=== PATIENT | male | born 1975 | race Caucasian/White ===

== ENCOUNTER 2022-06-15 20:19 | Inpatient (IN) | payer OTHER, SELFPAY ==
--- NOTE | ~2022-06-15 | CT_ITS ---
EXAMINATION: CT PELVIS WITH CONTRAST CLINICAL INFORMATION: Rule out perirectal abscess COMPARISON: None TECHNIQUE: Helical scanning was performed with submillimeter collimation through the pelvis with the use of oral contrast and during bolus intravenous injection of 85 mL of Omnipaque 350 intravenous contrast. Sagittal and coronal multiplanar 2-D reconstructions were obtained. This CT examination was performed using dose optimization techniques as appropriate, variously including the following: *Automated exposure control *Adjustment of mA and/or kV according to patient size (this includes techniques or standardized protocols for targeted exams where dose is matched to indication/reason for exam; i.e. extremities or head) *Use of iterative reconstruction technique DLP: 544 mGy-cm FINDINGS: PELVIS: No dilated bowel loops or bowel wall thickening in the [id number]. Trace free pelvic fluid and presacral edema. No perirectal or perianal fluid collection appreciated. No loculated collection/abscess. No pelvic or inguinal lymphadenopathy. Small fat-containing left inguinal hernia. Mild atherosclerotic vascular calcifications of the lower abdominal iliac arteries. Bladder grossly unremarkable. Normal sized prostate gland. Mild subcutaneous edema. Small bubbles of subcutaneous emphysema in the left lower quadrant, presumably injection sites. Correlate clinically. OSSEOUS STRUCTURES: No acute fracture. No suspicious appearing osseous lesion. Mild to moderate bilateral hip joint osteoarthritis with joint space narrowing, subchondral sclerosis, subchondral cysts, and osteophytes. Pubic symphysis and SI joints are congruent and intact. Partially sacralized the vertebra at the lumbosacral junction. Disc degenerative changes in the imaged lower lumbar spine. CT/CT pelvis w IV con IMPRESSION: 1. No perirectal/perianal fluid collection to suggest abscess. No appreciable rectal wall thickening. 2. Trace free pelvic fluid and presacral edema.
--- NOTE | ~2022-06-15 | CT_ITS ---
EXAMINATION: CT HEAD WITHOUT CONTRAST CT CERVICAL SPINE WITHOUT CONTRAST CLINICAL INFORMATION: Fall. Head strike. COMPARISON: None. TECHNIQUE: Imaging was performed from the skull base to vertex without intravenous administration of contrast. In addition, helical noncontrast CT imaging was acquired through the cervical spine and source images were reviewed along with axial reconstructions and sagittal and coronal MPRs. [This CT examination was performed using dose optimization techniques as appropriate, variously including the following: *Automated exposure control *Adjustment of mA and/or kV according to patient size (this includes techniques or standardized protocols for targeted exams where dose is matched to indication/reason for exam; i.e. extremities or head) *Use of iterative reconstruction technique] DLP: 1335 mGy-cm FINDINGS: HEAD: No intracranial mass, hemorrhage, or midline shift is visualized. The ventricles and sulci are proportional. No extra-axial collections are identified. The paranasal sinuses and mastoid air cells are well aerated. CERVICAL SPINE: There is no evidence of acute cervical spine fracture. Vertebral bodies remain normal in height. Cervical vertebrae have normal alignment. There is multilevel degenerative spondylosis of the cervical spine with disc height narrowing and endplate spurs and facet joint arthrosis No pre- or paravertebral soft tissue abnormality is identified. Limited assessment of the lung apices is unremarkable. CT/CT head/brain wo IV con IMPRESSION: 1. No acute intracranial pathology. 2. No CT evidence of acute cervical spine fracture or traumatic subluxation
--- NOTE | ~2022-06-15 | CT_ITS ---
EXAMINATION: CT HEAD WITHOUT CONTRAST CT CERVICAL SPINE WITHOUT CONTRAST CLINICAL INFORMATION: Fall. Head strike. COMPARISON: None. TECHNIQUE: Imaging was performed from the skull base to vertex without intravenous administration of contrast. In addition, helical noncontrast CT imaging was acquired through the cervical spine and source images were reviewed along with axial reconstructions and sagittal and coronal MPRs. [This CT examination was performed using dose optimization techniques as appropriate, variously including the following: *Automated exposure control *Adjustment of mA and/or kV according to patient size (this includes techniques or standardized protocols for targeted exams where dose is matched to indication/reason for exam; i.e. extremities or head) *Use of iterative reconstruction technique] DLP: 1335 mGy-cm FINDINGS: HEAD: No intracranial mass, hemorrhage, or midline shift is visualized. The ventricles and sulci are proportional. No extra-axial collections are identified. The paranasal sinuses and mastoid air cells are well aerated. CERVICAL SPINE: There is no evidence of acute cervical spine fracture. Vertebral bodies remain normal in height. Cervical vertebrae have normal alignment. There is multilevel degenerative spondylosis of the cervical spine with disc height narrowing and endplate spurs and facet joint arthrosis No pre- or paravertebral soft tissue abnormality is identified. Limited assessment of the lung apices is unremarkable. CT/CT cervical spine wo IV con IMPRESSION: 1. No acute intracranial pathology. 2. No CT evidence of acute cervical spine fracture or traumatic subluxation
--- NOTE | ~2022-06-15 | XR_ITS ---
EXAMINATION: XR CHEST CLINICAL INFORMATION: Cough COMPARISON: None TECHNIQUE: 2 views of the chest were obtained. FINDINGS: No significant abnormality is noted involving the heart, lungs, mediastinum, bony thorax or soft tissues. XR/XR chest 2V IMPRESSION: Unremarkable examination.
[2022-06-15 20:25] VITALS: BP 130/90; BP 139/89; PULSE 69; PULSE 79; RESP 18; TEMP 36.7; O2SAT 95; BMI 33.5
--- NOTE | 2022-06-15 20:33 | ECG_ITS ---
Test Reason : FALL Blood Pressure : / mmHG Vent. Rate : 069 BPM Atrial Rate : 069 BPM P-R Int : 134 ms QRS Dur : 110 ms QT Int : 420 ms P-R-T Axes : 028 031 037 degrees QTc Int : 450 ms Normal sinus rhythm Normal ECG No previous ECGs available Referred By: Alejandrina Pate Electronically Signed By:HELEN BRISENO
[2022-06-15 21:18] LABS: VBG Base Excess 0.2 mmol/L; VBG HCO3 26 mmol/L (22-26); VBG pCO2 48 mmHg; VBG pH 7.34 (7.32-7.43); VBG pO2 89 mmHg
[2022-06-15 21:20] LABS: Venous Blood Gas Refer to POC result
--- NOTE | 2022-06-15 21:26 | ED.FALL ---
HPI - Fall General Chief Complaint: Fall Stated Complaint: Fall Time Seen by Provider: 06/15/22 20:32 Source: patient and EMS Mode of arrival: EMS Limitations: no limitations and altered mental status History of Present Illness HPI Narrative: 46 yo male presenting via EMS with altered mental status and a fall. Patient poor historian due to AMS, unable to obtain accurate history. per EMS, witnesses saw patient have a seizure last night where he was foaming at the mouth. The patient has been confused, weak, and stumbling since. EMS was called today due to altered mental status and altered gait. Patient reported falling in bathroom today due to weakness, reports bowel incontinence due to weakness and numbness on his left side of his body. Per patient's sister, patient has history of opiate use disorder, with ICU admission in January after overdose . Patient reports he has had numbness on his left side since January. Patient denies any substance use recently. MD complaint: fall Onset (ago): unknown Fall from: standing Loss of consciousness: unsure Prolonged down time: unclear Associated symptoms (after fall): numbness and weakness Related Data Allergies Allergy/AdvReac Type Severity Reaction Status Date / Time aspirin [ASPIRIN] Allergy Intermediate RASH, HIVES Unverified 06/26/20 16:49 Review of Systems Review of Systems: Constitutional: No Fever, No Chills ENT/Mouth: No sore throat, No Rhinorrhea, No Swallowing Difficulty Eyes: No Eye Pain, No Swelling, No Redness Cardiovascular: No Chest Pain, No Orthopnea, No Edema Respiratory: + Cough, + black Sputum, + Wheezing, No dyspnea Gastrointestinal: No Nausea, No Vomiting, No Diarrhea, No abdominal Pain, No Hematochezia, No Melena Genitourinary: No Dysuria, No Urinary Frequency, No Hematuria Musculoskeletal: No joint pain, No Myalgias Skin: No Skin Lesions, No rash Neuro: + Weakness, + left sided Numbness, No Dizziness, No Headache PMFSH Social History Social History Advance Directives: No Advance Directives Information Provided: No Physical Exam Vital Signs: Vital Signs: Last Vital Signs Temp 98.0 F 06/15/22 20:25 Pulse 79 06/15/22 20:25 Resp 18 06/15/22 20:25 BP 139/89 06/15/22 20:25 Pulse Ox 95 06/15/22 20:25 O2 Del Method 06/15/22 20:25 Oxygen Flow Rate 2 06/15/22 20:25 BMI result Body Mass Index 33.5 Const: Other: Appearance: Oriented to person and place, reported year as 1219. Somnolent. Patient appears disheveled and unkept with dried stool on his clothing. Eyes: Pupils equal, round and reactive to light. ENT: Pharynx normal. Neck: Normal inspection. Neck supple. CVS: Normal heart rate and rhythm. Pulses normal. Respiratory: wheezing throughout all lung colon, sustained on 2 L via nasal cannula Abdomen: Soft and nontender. +BS x4 Skin: diaphoretic, Skin warm. Normal skin color. Normal skin turgor. No rashes. Extremities: No lower extremity edema. Neuro: 2/5 strength in bilateral upper extremities, able to move all 4 extremities. No sensory deficit. Course Course Course Narrative: 46-year-old male presenting via EMS with altered mental status and fall. per EMS, patient had witnessed seizure last night with foaming at the mouth, and has had altered mental status, weakness since. Patient reportedly fell in bathroom today. per patient's sister, patient has history of heroin abuse with ICU admission in January post overdose. On exam, patient oriented to self and place, reported year as 1219, patient is somnolent but arousable. Oxygen saturation in mid 90s on 2 L nasal cannula. Spoke with patient's sister at length (Laurie [phone]) who he lives with. she is home with [facility] and he left the house 1 week ago to stay with a friend in [place]. She states she has been in communication with him via text only, he does not answer the phone. She states since his ICU admission in January, he has not been the same. He complains of chronic left-sided numbness and pain. He is worried he relapsed using heroin again. After his ICU stay he was Section 35 to for 50 days. He has been living with her since and doing okay. She states he spends his days laying in bed. EKG ordered CXR unremarkable. CT head/brain without IV contrast Impressions: No acute intracranial pathology No CT evidence of acute cervical spine fracture or traumatic subluxation CT cervical spine without IV contrast Impressions: No acute intracranial pathology No CT evidence of acute cervical spine fracture or traumatic subluxation Reevaluation(s) Reevaluation #1: Labs remarkable for Creatine Kinase 26,779, INR 1.2, BUN 36, total bilirubin 1.2, AST 318, ALT 166. transaminitis due to rhabdomyolysis. his renal function is normal. 2 L IV fluid ordered now. He has not voided since arrival, bladder scan ordered. Will plan for admission - Fall Medical Records Attestation: I reviewed the patient's medical records. Lab Data Attestation: I reviewed the patient's lab results. Result diagrams: 06/15/22 21:01 06/15/22 21:01 Labs: Lab Results 06/15/22 06/15/22 06/15/22 Range/Units 21:01 21: 21:01 WBC 14.0 H (4.8-10.8) X10*3/uL RBC 5.05 (4.60-5.80) X10*6/uL Hgb 15.3 (14.0-18.0) g/dl Hct 46.2 (42.0-52.0) % MCV 91.5 (80.0-98.0) fL MCH 30.3 (27.0-33.0) pg MCHC 33.1 (31.0-36.0) g/dl RDW 13.6 (11.0-16.0) % Plt Count 202 (160-400) X10*3/uL MPV 10.3 (9.4-12.4) fL Immature Gran % (Auto) 0.4 (0.0-0.4) % Neut % (Auto) 74.7 H (45-73) % Lymph % (Auto) 18.0 L (20-40) % Sharkey % (Auto) 6.2 (2-11) % Eos % (Auto) 0.4 (0-4) % Baso % (Auto) 0.3 (0-2) % Lymph # (Auto) 2.5 (1.2-4.9) X10*3/uL Sharkey # (Auto) 0.9 (0.1-1.2) X10*3/uL Eos # (Auto) 0.1 (0.0-0.4) X10*3/uL Baso # (Auto) 0.0 (0.0-0.2) X10*3/uL Abs Immat Gran (auto) 0.05 H (0.00-0.03) X10*3/uL Absolute Neuts (auto) 10.5 H (2.0-8.3) x10*3/uL Absolute Nucleated RBC 0.020 H (0.0-0.012) X10*3/uL Nucleated RBC % (auto) 0.1 (0.0-0.2) /100WBC PT 13.5 H (10.0-13.1) SEC INR 1.2 H (0.9-1.1) APTT 27.1 (26.0-36.4) SEC VBG pH (7.32-7.43) VBG pCO2 mmHg VBG pO2 mmHg VBG HCO3 (22-26) mmol/L VBG O2 Saturation % VBG Base Excess mmol/L Sodium 139 (135-145) mmol/L Potassium 4.1 (3.3-5.1) mmol/L Chloride 101 (96-108) mmol/L Carbon Dioxide 24 (22-29) mmol/L Anion Gap 18 (12-20) BUN 36 H (9-16) mg/dL Creatinine 1.18 (0.5-1.4) mg/dL Estim Creat Clear Calc 99.2 Estimated GFR > 60 Random Glucose 127 H (60-115) mg/dL Lactic Acid (0.5-2.0) mmol/L Calcium 9.0 (8.4-10.2) mg/dL Magnesium 2.1 (1.6-2.6) mg/dL Total Bilirubin 1.2 H (0.0-1.0) mg/dL Direct Bilirubin 0.4 (0.0-0.5) mg/dL AST 389 H (5-37) U/L ALT 166 H (0-40) U/L Alkaline Phosphatase 58 (39-117) U/L Total Creatine Kinase 65698 H (38-174) U/L Total Protein 7.5 (6.5-8.0) g/dL Albumin 4.1 (3.5-5.0) g/dL Ethyl Alcohol mg/dL COVID-19 (MARYAN) (Negative) COVID-19 Clin Com 06/15/22 06/15/22 06/15/22 Range/Units 21:01 21:01 21:01 WBC (4.8-10.8) X10*3/uL RBC (4.60-5.80) X10*6/uL Hgb (14.0-18.0) g/dl Hct (42.0-52.0) % MCV (80.0-98.0) fL MCH (27.0-33.0) pg MCHC (31.0-36.0) g/dl RDW (11.0-16.0) % Plt Count (160-400) X10*3/uL MPV (9.4-12.4) fL Immature Gran % (Auto) (0.0-0.4) % Neut % (Auto) (45-73) % Lymph % (Auto) (20-40) % Sharkey % (Auto) (2-11) % Eos % (Auto) (0-4) % Baso % (Auto) (0-2) % Lymph # (Auto) (1.2-4.9) X10*3/uL Sharkey # (Auto) (0.1-1.2) X10*3/uL Eos # (Auto) (0.0-0.4) X10*3/uL Baso # (Auto) (0.0-0.2) X10*3/uL Abs Immat Gran (auto) (0.00-0.03) X10*3/uL Absolute Neuts (auto) (2.0-8.3) x10*3/uL Absolute Nucleated RBC (0.0-0.012) X10*3/uL Nucleated RBC % (auto) (0.0-0.2) /100WBC PT (10.0-13.1) SEC INR (0.9-1.1) APTT (26.0-36.4) SEC VBG pH (7.32-7.43) VBG pCO2 mmHg VBG pO2 mmHg VBG HCO3 (22-26) mmol/L VBG O2 Saturation % VBG Base Excess mmol/L Sodium (135-145) mmol/L Potassium (3.3-5.1) mmol/L Chloride (96-108) mmol/L Carbon Dioxide (22-29) mmol/L Anion Gap (12-20) BUN (9-16) mg/dL Creatinine (0.5-1.4) mg/dL Estim Creat Clear Calc Estimated GFR Random Glucose (60-115) mg/dL Lactic Acid 1.6 (0.5-2.0) mmol/L Calcium (8.4-10.2) mg/dL Magnesium (1.6-2.6) mg/dL Total Bilirubin (0.0-1.0) mg/dL Direct Bilirubin (0.0-0.5) mg/dL AST (5-37) U/L ALT (0-40) U/L Alkaline Phosphatase (39-117) U/L Total Creatine Kinase (38-174) U/L Total Protein (6.5-8.0) g/dL Albumin (3.5-5.0) g/dL Ethyl Alcohol < 10 mg/dL COVID-19 (MARYAN) Negative (Negative) COVID-19 Clin Com See Note 06/15/22 Range/Units 21:12 WBC (4.8-10.8) X10*3/uL RBC (4.60-5.80) X10*6/uL Hgb (14.0-18.0) g/dl Hct (42.0-52.0) % MCV (80.0-98.0) fL MCH (27.0-33.0) pg MCHC (31.0-36.0) g/dl RDW (11.0-16.0) % Plt Count (160-400) X10*3/uL MPV (9.4-12.4) fL Immature Gran % (Auto) (0.0-0.4) % Neut % (Auto) (45-73) % Lymph % (Auto) (20-40) % Sharkey % (Auto) (2-11) % Eos % (Auto) (0-4) % Baso % (Auto) (0-2) % Lymph # (Auto) (1.2-4.9) X10*3/uL Sharkey # (Auto) (0.1-1.2) X10*3/uL Eos # (Auto) (0.0-0.4) X10*3/uL Baso # (Auto) (0.0-0.2) X10*3/uL Abs Immat Gran (auto) (0.00-0.03) X10*3/uL Absolute Neuts (auto) (2.0-8.3) x10*3/uL Absolute Nucleated RBC (0.0-0.012) X10*3/uL Nucleated RBC % (auto) (0.0-0.2) /100WBC PT (10.0-13.1) SEC INR (0.9-1.1) APTT (26.0-36.4) SEC VBG pH 7.34 (7.32-7.43) VBG pCO2 48 mmHg VBG pO2 89 mmHg VBG HCO3 26 (22-26) mmol/L VBG O2 Saturation 97.0 % VBG Base Excess 0.2 mmol/L Sodium (135-145) mmol/L Potassium (3.3-5.1) mmol/L Chloride (96-108) mmol/L Carbon Dioxide (22-29) mmol/L Anion Gap (12-20) BUN (9-16) mg/dL Creatinine (0.5-1.4) mg/dL Estim Creat Clear Calc Estimated GFR Random Glucose (60-115) mg/dL Lactic Acid (0.5-2.0) mmol/L Calcium (8.4-10.2) mg/dL Magnesium (1.6-2.6) mg/dL Total Bilirubin (0.0-1.0) mg/dL Direct Bilirubin (0.0-0.5) mg/dL AST (5-37) U/L ALT (0-40) U/L Alkaline Phosphatase (39-117) U/L Total Creatine Kinase (38-174) U/L Total Protein (6.5-8.0) g/dL Albumin (3.5-5.0) g/dL Ethyl Alcohol mg/dL COVID-19 ([facility]) (Negative) COVID-19 Clin Com ECG Data Attestation: I personally reviewed and interpreted this ECG as follows: ECG interpretation date: 06/15/22 ECG interpretation time: 23:13 Interpretation: S normal sinus rhythm, ventricular rate 69 beats per minute, normal NH interval, normal QTC. No ST segment elevations or depressions. Critical Care Time Critical Care Time Critical Care Time: Yes Total Critical Care Time: 39 Attestation: I have personally provided critical care time exclusive of time spent on separately billable procedures. Time includes review of lab data, radiology results, discussion with consultants, and monitoring for potential decompensation. Intervention performed as documented. Discharge Plan Discharge Clinical Impression: Rhabdomyolysis Patient Disposition: Admitted As Inpatient
[2022-06-15 21:31] LABS: INTERNATIONAL NORM RATIO 1.2 (0.9-1.1); Prothrombin Time 13.5 SEC (10.0-13.1)
[2022-06-15 21:32] LABS: Ethanol < 10 mg/dL; Lactic Acid 1.6 mmol/L (0.5-2.0)
[2022-06-15 21:34] LABS: Partial Thromboplastin Time 27.1 SEC (26.0-36.4)
[2022-06-15 21:38] LABS: COVID-19 Test Negative (Negative); IDNOW Serial# 55D5AD1C
[2022-06-15 21:50] LABS: Alanine Aminotransferase 166 U/L (0-40); Albumin Level 4.1 g/dL (3.5-5.0); Alkaline Phosphatase 58 U/L (39-117); Anion Gap 18 (12-20); Aspartate Amino Transferase 389 U/L (5-37); Bilirubin Direct 0.4 mg/dL (0.0-0.5); Bilirubin Total 1.2 mg/dL (0.0-1.0); Blood Urea Nitrogen 36 mg/dL (9-16); Carbon Dioxide 24 mmol/L (22-29); Chloride 101 mmol/L (96-108); Creatinine Clr Calc Pharmacy 99.2; Estimated Glomerular Filt Rate > 60; Glucose Random 127 mg/dL (60-115); Magnesium 2.1 mg/dL (1.6-2.6); Potassium 4.1 mmol/L (3.3-5.1); Sodium 139 mmol/L (135-145); Total Protein 7.5 g/dL (6.5-8.0)
[2022-06-15 22:37] LABS: MANUAL DIFF FLAG NO
[2022-06-15 22:39] LABS: Basophils Percent Auto 0.3 % (0-2); Eosinophils Absolute Auto 0.1 X10*3/uL (0.0-0.4); Eosinophils Percent Auto 0.4 % (0-4); Hematocrit 46.2 % (42.0-52.0); Hemoglobin 15.3 g/dl (14.0-18.0); Imm Gran Abs Auto 0.05 X10*3/uL (0.00-0.03); Imm Gran Pct Auto 0.4 % (0.0-0.4); Lymphocytes Absolute Auto 2.5 X10*3/uL (1.2-4.9); Mean Corpuscular HGB Conc 33.1 g/dl (31.0-36.0); Mean Corpuscular Hemoglobin 30.3 pg (27.0-33.0); Mean Corpuscular Volume 91.5 fL (80.0-98.0); Mean Platelet Volume 10.3 fL (9.4-12.4); Monocytes Absolute Auto 0.9 X10*3/uL (0.1-1.2); Monocytes Percent Auto 6.2 % (2-11); NRBC Pct Auto 0.1 /100WBC (0.0-0.2); Neutrophils Absolute Auto 10.5 x10*3/uL (2.0-8.3); Neutrophils Percent Auto 74.7 % (45-73); Platelet Count 202 X10*3/uL (160-400); Red Blood Count 5.05 X10*6/uL (4.60-5.80); Red Cell Distribution Width 13.6 % (11.0-16.0)
[2022-06-15] MEDS: 0.9 % Sodium Chloride 1,000 ML 999 ML IVCONT ×2 (22:55)
[2022-06-15] MEDS: 0.9 % Sodium Chloride Flush 3 ML SYRINGE IVFLUSH (22:56)
--- NOTE | 2022-06-15 23:48 | PM.IMHP ---
History of Present Illness Date of Service: 06/15/22 Chief Complaint: fall 46-year-old male with past medical history of IV drug use who presents to the hospital with complaints of falling. Patient arrives via EMS with altered mental status and a fall. Patient is unable to give much history as he is lethargic but arousable. He answers questions appropriately but just yes or no. Per EMS patient was witnessed to have seizure-like activity. Patient himself reports that he slipped and fell in the bathroom but, he reports no loss of consciousness. unclear who called EMS. He has history of IV drug use with ICU admission in January for overdose. Unable to obtain much more history. Patient himself denies any headache, change in vision, no chest pain, shortness of breath, no abdominal pain nausea or vomiting, no diarrhea constipation, no urinary symptoms and no lower extremity edema. on arrival to the ED patient hemodynamically stable with no significant abnormal vitals Labs are significant for WBC count of 14, AST of 389, ALT of 166, CPK of 26,779, COVID-19 negative When asked the patient how long he was down for he says about 30 minutes. Patient started on IV fluids and will be admitted for further management Head CT shows no acute intracranial pathology, no CT evidence of acute cervical spine fracture or traumatic subluxation Unable to obtain full medical history Review of Systems Review of Systems: Yes Unobtainable due to mental condition and Unobtainable due to mental status PMFSH Social History Advance Directives: No Advance Directives Information Provided: No Meds Allergies Allergy/AdvReac Type Severity Reaction Status Date / Time aspirin [ASPIRIN] Allergy Intermediate RASH, HIVES Unverified 06/26/20 16:49 Active Medications: Current Medications Acetaminophen (Acetaminophen 325 Mg Tablet) 650 mg PO Q6H PRN PRN Reason: Pain, Mild (Pain Scale 1-3) Docusate Sodium (Docusate Sodium 100 Mg Capsule) 100 mg PO DAILY PRN PRN Reason: Constipation Heparin Sodium (Porcine) (Heparin Sodium,Porcine 5,000 Unit/Ml Vial) 5,000 unit SUBCUT Q12H JOELLE Lactated Ringer's (Lr) 1,000 mls @ 200 mls/hr IVCONT .Q5H JOELLE Ondansetron HCl (Ondansetron Hcl 4 Mg/2 Ml Vial) 4 mg IVPUSH Q8H PRN PRN Reason: Nausea and Vomiting Sodium Chloride (0.9 % Sodium Chloride Flush 3 Ml Syringe) 3 ml IVFLUSH [facility] Last Admin: 06/15/22 22:56 Dose: 3 ml Sodium Chloride (0.9 % Sodium Chloride Flush 3 Ml Syringe) 3 ml IVFLUSH [facility] Physical Exam Vital Signs and Narrative: Vital Signs: Last Vital Signs Temp 98.0 F 06/15/22 20:25 Pulse 79 06/15/22 20:25 Resp 18 06/15/22 20:25 BP 139/89 06/15/22 20:25 Pulse Ox 95 06/15/22 20:25 O2 Del Method 06/15/22 20:25 Oxygen Flow Rate 2 06/15/22 20:25 BMI result Body Mass Index 33.5 Results Labs CBC and Chem 7: 06/15/22 21:01 06/15/22 21:01 Labs: Laboratory Results - last 24 hr 06/15/22 06/15/22 06/15/22 21:01 21:01 21:01 MCV 91.5 MCH 30.3 MCHC 33.1 RDW 13.6 Plt Count 202 MPV 10.3 Immature Gran % (Auto) 0.4 Neut % (Auto) 74.7 H Lymph % (Auto) 18.0 L Dickens % (Auto) 6.2 Eos % (Auto) 0.4 Baso % (Auto) 0.3 Lymph # (Auto) 2.5 Dickens # (Auto) 0.9 Eos # (Auto) 0.1 Baso # (Auto) 0.0 Abs Immat Gran (auto) 0.05 H Absolute Neuts (auto) 10.5 H Absolute Nucleated RBC 0.020 H Nucleated RBC % (auto) 0.1 PT 13.5 H INR 1.2 H APTT 27.1 VBG pH VBG pCO2 VBG pO2 VBG HCO3 VBG O2 Saturation VBG Base Excess Anion Gap 18 Estim Creat Clear Calc 99.2 Estimated GFR > 60 Random Glucose 127 H Lactic Acid Calcium 9.0 Magnesium 2.1 Total Bilirubin 1.2 H Direct Bilirubin 0.4 AST 389 H ALT 166 H Alkaline Phosphatase 58 Total Creatine Kinase 07480 H Total Protein 7.5 Albumin 4.1 Ethyl Alcohol COVID-19 ([facility]) COVID-19 Clin Com 06/15/22 06/15/22 06/15/22 21:01 21:01 21:01 MCV MCH MCHC RDW Plt Count MPV Immature Gran % (Auto) Neut % (Auto) Lymph % (Auto) Dickens % (Auto) Eos % (Auto) Baso % (Auto) Lymph # (Auto) Dickens # (Auto) Eos # (Auto) Baso # (Auto) Abs Immat Gran (auto) Absolute Neuts (auto) Absolute Nucleated RBC Nucleated RBC % (auto) PT INR APTT VBG pH VBG pCO2 VBG pO2 VBG HCO3 VBG O2 Saturation VBG Base Excess Anion Gap Estim Creat Clear Calc Estimated GFR Random Glucose Lactic Acid 1.6 Calcium Magnesium Total Bilirubin Direct Bilirubin AST ALT Alkaline Phosphatase Total Creatine Kinase Total Protein Albumin Ethyl Alcohol < 10 COVID-19 ([facility]AN) Negative COVID-19 Clin Com See Note 06/15/22 21:12 MCV MCH MCHC RDW Plt Count MPV Immature Gran % (Auto) Neut % (Auto) Lymph % (Auto) Dickens % (Auto) Eos % (Auto) Baso % (Auto) Lymph # (Auto) Dickens # (Auto) Eos # (Auto) Baso # (Auto) Abs Immat Gran (auto) Absolute Neuts (auto) Absolute Nucleated RBC Nucleated RBC % (auto) PT INR APTT VBG pH 7.34 VBG pCO2 48 VBG pO2 89 VBG HCO3 26 VBG O2 Saturation 97.0 VBG Base Excess 0.2 Anion Gap Estim Creat Clear Calc Estimated GFR Random Glucose Lactic Acid Calcium Magnesium Total Bilirubin Direct Bilirubin AST ALT Alkaline Phosphatase Total Creatine Kinase Total Protein Albumin Ethyl Alcohol COVID-19 ([facility]AN) COVID-19 Clin Com Imaging Radiologist's Impressions: Impressions Cervical Spine CT 06/15/22 20:52 IMPRESSION: 1. No acute intracranial pathology. 2. No CT evidence of acute cervical spine fracture or traumatic subluxation Head CT 06/15/22 20:52 IMPRESSION: 1. No acute intracranial pathology. 2. No CT evidence of acute cervical spine fracture or traumatic subluxation Chest X-Ray 06/15/22 22:30 IMPRESSION: Unremarkable examination. Assessment and Plan (1) Rhabdomyolysis: Status: Acute (2) Encephalopathy: Status: Acute (3) Intravenous drug user: Status: Acute Plan 46-year-old male with past medical history of IV drug use presents to the hospital with fall, found to have significant rhabdomyolysis # rhabdomyolysis - likely in the setting of fall - details on his fall are unclear, it is unclear how long patient was down for - [id number] - will treat with aggressive IV fluids - follow CPK - follow BMP- at this time there is no kidney damage # encephalopathy - likely secondary to IV drug use - pending UDS - head CT negative - if continues to be encephalopathic, consider MRI # intravenous drug user - unclear phone methadone - once patient is more awake, alert, and able to give better history, will obtain history regarding methadone, not on methadone consider care team consult DVT prophylaxis: Lovenox Given patient's significant rhabdomyolysis, and need for IV hydration patient will require minimal 2 night hospital stay for further management and monitoring Quality Stroke Does the patient have a stroke diagnosis?: No VTE Prior VTE?: No VTE Risk Level:: Medical - moderate - high VTE Device Contraindication: Treatment Not Indicated VTE Drug Contraindication: N/A - Med Ordered
[2022-06-16 00:26] LABS: Glucose, Whole Blood 132 mg/dL (60-115)
[2022-06-16 00:26] LABS: Glucose, Whole Blood 138 mg/dL (60-115)
[2022-06-16] MEDS: Lactated Ringers 1,000 ML 200 ML IVCONT ×5 (01:30→19:37)
[2022-06-16] MEDS: Heparin Sodium,Porcine 5,000 UNIT/ML VIAL 5000 UNIT SUBCUT ×3 (01:32→21:18)
--- NOTE | 2022-06-16 01:35 | PC.NURSE ---
pt sleeping, no sob or chest pain. Pt medicated per Mar. Will continue to monitor.
[2022-06-16 03:54] VITALS: BP 129/86; PULSE 70; RESP 18; O2SAT 94
--- NOTE | 2022-06-16 05:09 | PC.NURSE ---
pt sleeping, no sign of distress. urinal emptied. pt mediated per mar. will continue to monitor.
[2022-06-16 07:59] LABS: MANUAL DIFF FLAG NO
[2022-06-16 08:00] LABS: Basophils Absolute Auto 0.1 X10*3/uL (0.0-0.2); Basophils Percent Auto 0.5 % (0-2); Eosinophils Absolute Auto 0.2 X10*3/uL (0.0-0.4); Eosinophils Percent Auto 1.4 % (0-4); Hematocrit 44.3 % (42.0-52.0); Hemoglobin 14.5 g/dl (14.0-18.0); Imm Gran Abs Auto 0.06 X10*3/uL (0.00-0.03); Imm Gran Pct Auto 0.6 % (0.0-0.4); Lymphocytes Absolute Auto 1.8 X10*3/uL (1.2-4.9); Mean Corpuscular HGB Conc 32.7 g/dl (31.0-36.0); Mean Corpuscular Hemoglobin 30.1 pg (27.0-33.0); Mean Corpuscular Volume 92.1 fL (80.0-98.0); Mean Platelet Volume 10.3 fL (9.4-12.4); Monocytes Absolute Auto 0.8 X10*3/uL (0.1-1.2); Monocytes Percent Auto 6.9 % (2-11); Neutrophils Percent Auto 73.6 % (45-73); Platelet Count 174 X10*3/uL (160-400); Red Blood Count 4.81 X10*6/uL (4.60-5.80); Red Cell Distribution Width 13.8 % (11.0-16.0); White Blood Count 10.8 X10*3/uL (4.8-10.8)
--- NOTE | 2022-06-16 08:04 | PHA.MEDREC ---
Pharmacy Consult ? Medication Reconciliation Pharmacy has completed the medication reconciliation.
[2022-06-16 08:21] LABS: Anion Gap 17 (12-20); Blood Urea Nitrogen 25 mg/dL (9-16); Calcium 8.3 mg/dL (8.4-10.2); Carbon Dioxide 22 mmol/L (22-29); Chloride 106 mmol/L (96-108); Creatinine Clr Calc Pharmacy 146.3; Estimated Glomerular Filt Rate > 60; Glucose Random 123 mg/dL (60-115); Potassium 4.5 mmol/L (3.3-5.1); Sodium 140 mmol/L (135-145)
--- NOTE | 2022-06-16 12:56 | MHC.CM.PN ---
PATIENT LIVES WITH HIS SISTER INDEPENDENT AT HOME AND COMMUNITY DENIES USE OF DME OR RECEIVING HOME SERVICES NOT [facility] NO PCP HCP-EDUCATED, DECLINED AT THIS TIME SISTER WILL TRANSPORT D/C PLAN: HOME SELF-CARE
[2022-06-16 13:41] VITALS: BP 123/88; PULSE 63; RESP 14; TEMP 36.7; O2SAT 96
[2022-06-16 13:52] LABS: Appearance Urine Clear; Color Urine Yellow; Glucose Urine UA Negative (Negative); Leukocyte Esterase Urine Negative (Negative); Nitrite Urine Negative (Negative); Specific Gravity - Urine 1.025 (1.005-1.025); Urine Blood Large (3+) (Negative); Urine Ketones Trace mg/dL (Negative); Urine Protein 100 (2+) mg/dL (Neg-Trace)
[2022-06-16 14:02] LABS: Amphetamine Screen Urine Not Detected (Not Detect); Barbiturates, Urine Not Detected (Not Detect); Benzodiazepines Screen Urine Not Detected (Not Detect); Cannabinoid Screen Urine POSITIVE (Not Detect); Cocaine Screen Urine POSITIVE (Not Detect); Fentanyl, urine POSITIVE (Not Detect); Opiate Screen Urine Not Detected (Not Detect); Phencyclidine Screen Urine POSITIVE (Not Detect)
[2022-06-16 14:03] LABS: Bacteria Urine None Seen (None Seen); Hyaline Casts Urine 0-2 /LPF (0-2); RBC Urine 0-2 /HPF (0-2); Squamous Epithelial Cell Urine 0-2 /HPF (0-2); WBC Urine 0-5 /HPF (0-5)
--- NOTE | 2022-06-16 14:37 | P.PNIM_ITS ---
Subjective Subjective Date of Service: 06/16/22 Interval History: no acute issues overnight Review of Systems denies chest pain Denies shortness of breath Denies nausea vomiting diarrhea Physical Exam Vital Signs: Vital Signs: Last Vital Signs Temp 98.0 F 06/16/22 13:41 Pulse 63 06/16/22 13:41 Resp 14 06/16/22 13:41 BP 123/88 06/16/22 13:41 Pulse Ox 96 06/16/22 13:41 O2 Del Method 06/16/22 13:41 O2 Flow Rate 2 06/16/22 13:41 Oxygen Flow Rate 2 06/15/22 20:25 BMI result Body Mass Index 33.5 Const: Other: no acute distress Resp: Other: clear to auscultation bilaterally no rales rhonchi or wheezes Cardio: Other: no S4; positive S1-S2; no S3 murmurs rubs or gallops GI: Other: soft positive bowel sounds Extrem: Other: no edema bilaterally Objective Data Active Medications Acetaminophen (Acetaminophen 325 Mg Tablet) 650 mg PO Q6H PRN PRN Reason: Pain, Mild (Pain Scale 1-3) Docusate Sodium (Docusate Sodium 100 Mg Capsule) 100 mg PO DAILY PRN PRN Reason: Constipation Heparin Sodium (Porcine) (Heparin Sodium,Porcine 5,000 Unit/Ml Vial) 5,000 unit SUBCUT BID [facility] Last Admin: 06/16/22 09:44 Dose: 5,000 unit Documented By: CHANDRAKANT Lactated Ringer's (Lr) 1,000 mls @ 200 mls/hr IVCONT .Q5H [facility] Last Admin: 06/16/22 10:08 Dose: 200 mls/hr Documented By: DO Ondansetron HCl (Ondansetron Hcl 4 Mg/2 Ml Vial) 4 mg IVPUSH Q8H PRN PRN Reason: Nausea and Vomiting Sodium Chloride (0.9 % Sodium Chloride Flush 3 Ml Syringe) [facility] Last Admin: 06/16/22 09:11 Dose: Not Given Documented By: CHANDRAKANT Non-Admin Reason: IV Running Sodium Chloride (0.9 % Sodium Chloride Flush 3 Ml Syringe) 3 ml IVFLUSH QSNEFT [facility] Last Admin: 06/16/22 08:06 Dose: Not Given Documented By: HO.VERR Non-Admin Reason: IV Running Labs CBC & Chem 7: 06/16/22 07:37 06/16/22 07:37 Labs: Laboratory Results - last 24 hr 06/15/22 06/15/22 06/15/22 20:54 21:01 21:01 MCV 91.5 MCH 30.3 MCHC 33.1 RDW 13.6 Plt Count 202 MPV 10.3 Immature Gran % (Auto) 0.4 Neut % (Auto) 74.7 H Lymph % (Auto) 18.0 L [place] % (Auto) 6.2 Eos % (Auto) 0.4 Baso % (Auto) 0.3 Lymph # (Auto) 2.5 [place] # (Auto) 0.9 Eos # (Auto) 0.1 Baso # (Auto) 0.0 Abs Immat Gran (auto) 0.05 H Absolute Neuts (auto) 10.5 H Absolute Nucleated RBC 0.020 H Nucleated RBC % (auto) 0.1 PT INR APTT VBG pH VBG pCO2 VBG pO2 VBG HCO3 VBG O2 Saturation VBG Base Excess Anion Gap 18 Estim Creat Clear Calc 99.2 Estimated GFR > 60 POC Glucose 132 H Random Glucose 127 H Lactic Acid Calcium 9.0 Magnesium 2.1 Total Bilirubin 1.2 H Direct Bilirubin 0.4 AST 389 H ALT 166 H Alkaline Phosphatase 58 Total Creatine Kinase 82084 H Total Protein 7.5 Albumin 4.1 Urine Color Urine Appearance Urine pH Ur Specific [place] Urine Protein Urine Glucose (UA) Urine Ketones Urine Blood Urine Nitrite Ur Leukocyte Esterase Urine RBC Urine WBC Ur Squamous Epith Cells Urine Bacteria Hyaline Casts Urine Opiates Screen Urine Fentanyl Screen Ur Barbiturates Screen Ur Phencyclidine Scrn Ur Amphetamines Screen U Benzodiazepines Scrn Urine Cocaine Screen U Marijuana (THC) Screen Ethyl Alcohol COVID-19 (MARYAN) COVID-19 Clin Com 06/15/22 06/15/22 06/15/22 21:01 21:01 21:01 MCV MCH MCHC RDW Plt Count MPV Immature Gran % (Auto) Neut % (Auto) Lymph % (Auto) [place] % (Auto) Eos % (Auto) Baso % (Auto) Lymph # (Auto) [place] # (Auto) Eos # (Auto) Baso # (Auto) Abs Immat Gran (auto) Absolute Neuts (auto) Absolute Nucleated RBC Nucleated RBC % (auto) PT 13.5 H INR 1.2 H APTT 27.1 VBG pH VBG pCO2 VBG pO2 VBG HCO3 VBG O2 Saturation VBG Base Excess Anion Gap Estim Creat Clear Calc Estimated GFR POC Glucose Random Glucose Lactic Acid 1.6 Calcium Magnesium Total Bilirubin Direct Bilirubin AST ALT Alkaline Phosphatase Total Creatine Kinase Total Protein Albumin Urine Color Urine Appearance Urine pH Ur Specific [place] Urine Protein Urine Glucose (UA) Urine Ketones Urine Blood Urine Nitrite Ur Leukocyte Esterase Urine RBC Urine WBC Ur Squamous Epith Cells Urine Bacteria Hyaline Casts Urine Opiates Screen Urine Fentanyl Screen Ur Barbiturates Screen Ur Phencyclidine Scrn Ur Amphetamines Screen U Benzodiazepines Scrn Urine Cocaine Screen U Marijuana (THC) Screen Ethyl Alcohol COVID-19 (MARYAN) Negative COVID-19 [facility] Com See Note 06/15/22 06/15/22 06/15/22 21:01 21:12 21:18 MCV MCH MCHC RDW Plt Count MPV Immature Gran % (Auto) Neut % (Auto) Lymph % (Auto) [place] % (Auto) Eos % (Auto) Baso % (Auto) Lymph # (Auto) [place] # (Auto) Eos # (Auto) Baso # (Auto) Abs Immat Gran (auto) Absolute Neuts (auto) Absolute Nucleated RBC Nucleated RBC % (auto) PT INR APTT VBG pH 7.34 VBG pCO2 48 VBG pO2 89 VBG HCO3 26 VBG O2 Saturation 97.0 VBG Base Excess 0.2 Anion Gap Estim Creat Clear Calc Estimated GFR POC Glucose 138 H Random Glucose Lactic Acid Calcium Magnesium Total Bilirubin Direct Bilirubin AST ALT Alkaline Phosphatase Total Creatine Kinase Total Protein Albumin Urine Color Urine Appearance Urine pH Ur Specific [place] Urine Protein Urine Glucose (UA) Urine Ketones Urine Blood Urine Nitrite Ur Leukocyte Esterase Urine RBC Urine WBC Ur Squamous Epith Cells Urine Bacteria Hyaline Casts Urine Opiates Screen Urine Fentanyl Screen Ur Barbiturates Screen Ur Phencyclidine Scrn Ur Amphetamines Screen U Benzodiazepines Scrn Urine Cocaine Screen U Marijuana (THC) Screen Ethyl Alcohol < 10 COVID-19 (MARYAN) COVID-19 [facility] Com 06/16/22 06/16/22 06/16/22 07:37 07:37 07:37 MCV 92.1 MCH 30.1 MCHC 32.7 RDW 13.8 Plt Count 174 MPV 10.3 Immature Gran % (Auto) 0.6 H Neut % (Auto) 73.6 H Lymph % (Auto) 17.0 L [place] % (Auto) 6.9 Eos % (Auto) 1.4 Baso % (Auto) 0.5 Lymph # (Auto) 1.8 [place] # (Auto) 0.8 Eos # (Auto) 0.2 Baso # (Auto) 0.1 Abs Immat Gran (auto) 0.06 H Absolute Neuts (auto) 8.0 Absolute Nucleated RBC 0.000 Nucleated RBC % (auto) 0.0 PT INR APTT VBG pH VBG pCO2 VBG pO2 VBG HCO3 VBG O2 Saturation VBG Base Excess Anion Gap 17 Estim Creat Clear Calc 146.3 Estimated GFR > 60 POC Glucose Random Glucose 123 H Lactic Acid Calcium 8.3 L D Magnesium Total Bilirubin Direct Bilirubin AST ALT Alkaline Phosphatase Total Creatine Kinase 98110 H Total Protein Albumin Urine Color Urine Appearance Urine pH Ur Specific [place] Urine Protein Urine Glucose (UA) Urine Ketones Urine Blood Urine Nitrite Ur Leukocyte Esterase Urine RBC Urine WBC Ur Squamous Epith Cells Urine Bacteria Hyaline Casts Urine Opiates Screen Urine Fentanyl Screen Ur Barbiturates Screen Ur Phencyclidine Scrn Ur Amphetamines Screen U Benzodiazepines Scrn Urine Cocaine Screen U Marijuana (THC) Screen Ethyl Alcohol COVID-19 (MARYAN) COVID-19 Clin Com 06/16/22 06/16/22 13:35 13:35 MCV MCH MCHC RDW Plt Count MPV Immature Gran % (Auto) Neut % (Auto) Lymph % (Auto) [place] % (Auto) Eos % (Auto) Baso % (Auto) Lymph # (Auto) [place] # (Auto) Eos # (Auto) Baso # (Auto) Abs Immat Gran (auto) Absolute Neuts (auto) Absolute Nucleated RBC Nucleated RBC % (auto) PT INR APTT VBG pH VBG pCO2 VBG pO2 VBG HCO3 VBG O2 Saturation VBG Base Excess Anion Gap Estim Creat Clear Calc Estimated GFR POC Glucose Random Glucose Lactic Acid Calcium Magnesium Total Bilirubin Direct Bilirubin AST ALT Alkaline Phosphatase Total Creatine Kinase Total Protein Albumin Urine Color Yellow Urine Appearance Clear Urine pH 6.0 Ur Specific [place] 1.025 Urine Protein 100 (2+) H Urine Glucose (UA) Negative Urine Ketones Trace Urine Blood Large (3+) H Urine Nitrite Negative Ur Leukocyte Esterase Negative Urine RBC 0-2 Urine WBC 0-5 Ur Squamous Epith Cells 0-2 Urine Bacteria None Seen Hyaline Casts 0-2 Urine Opiates Screen Not Detected Urine Fentanyl Screen POSITIVE H Ur Barbiturates Screen Not Detected Ur Phencyclidine Scrn POSITIVE H Ur Amphetamines Screen Not Detected U Benzodiazepines Scrn Not Detected Urine Cocaine Screen POSITIVE H U Marijuana (THC) Screen POSITIVE H Ethyl Alcohol COVID-19 (MARYAN) COVID-19 Clin Com Assessment and Plan (1) Rhabdomyolysis: Status: Acute (2) Encephalopathy: Status: Acute (3) Intravenous drug user: Status: Acute Plan 46-year-old male with past medical history of IV drug use presents to the hospital with fall, found to have significant rhabdomyolysis that is responding to IV volume repletion 1.Rhabdomyolysis - trending downward in response to IV volume repletion -follow CPKs / renals/divalents 2.Encephalopathy - slowly responding 3.Intravenous drug user - patient denies recent use - follow clinically DVT prophylaxis: Lovenox Given patient's significant rhabdomyolysis, and need for IV volume replacement Quality Stroke Does the patient have a stroke diagnosis?: No VTE Prior VTE?: No VTE Risk Level:: Medical - moderate - high VTE Device Contraindication: Treatment Not Indicated VTE Drug Contraindication: N/A - Med Ordered
[2022-06-16] MEDS: 0.9 % Sodium Chloride Flush 3 ML SYRINGE IVFLUSH ×2 (16:04)
--- NOTE | 2022-06-16 17:17 | PC.NURSE ---
Pt lives with his sister: Her number is . With patient's verbal permission an update of his care was given to him.
--- NOTE | 2022-06-16 18:07 | PC.NURSE ---
Pt cleaned of stool incontinence with his assistance. Full bath provided. Pt is lethargic and withdrawn but remains arrousable to tactile stimuli and is oriented x3.
[2022-06-16 20:00] VITALS: BP 134/71; PULSE 84; RESP 18; TEMP 36.6; O2SAT 100
[2022-06-17] VITALS: BP 133/72; PULSE 80; RESP 18; TEMP 36.7; O2SAT 97
[2022-06-17] MEDS: Lactated Ringers 1,000 ML 200 ML IVCONT ×4 (01:29→17:58)
[2022-06-17 04:00] VITALS: BP 141/76; PULSE 78; RESP 18; TEMP 37.3; O2SAT 96
[2022-06-17 07:25] VITALS: BP 126/80; PULSE 70; RESP 17; TEMP 36.9; O2SAT 97
[2022-06-17] MEDS: Enoxaparin Sodium 40 MG/0.4 ML SYRINGE SUBCUT (08:27)
[2022-06-17] MEDS: 0.9 % Sodium Chloride Flush 3 ML SYRINGE IVFLUSH ×3 (08:28→17:59)
[2022-06-17] MEDS: Acetaminophen 325 MG TABLET 650 MG PO (08:49)
[2022-06-17 08:52] LABS: MANUAL DIFF FLAG NO
[2022-06-17 09:03] LABS: Basophils Percent Auto 0.3 % (0-2); Eosinophils Absolute Auto 0.1 X10*3/uL (0.0-0.4); Eosinophils Percent Auto 1.6 % (0-4); Hematocrit 39.1 % (42.0-52.0); Hemoglobin 12.8 g/dl (14.0-18.0); Imm Gran Abs Auto 0.04 X10*3/uL (0.00-0.03); Imm Gran Pct Auto 0.5 % (0.0-0.4); Lymphocytes Absolute Auto 1.9 X10*3/uL (1.2-4.9); Lymphocytes Percent Auto 23.5 % (20-40); Mean Corpuscular HGB Conc 32.7 g/dl (31.0-36.0); Mean Corpuscular Volume 91.8 fL (80.0-98.0); Mean Platelet Volume 9.8 fL (9.4-12.4); Monocytes Absolute Auto 0.7 X10*3/uL (0.1-1.2); Monocytes Percent Auto 9.3 % (2-11); Neutrophils Absolute Auto 5.1 x10*3/uL (2.0-8.3); Neutrophils Percent Auto 64.8 % (45-73); Platelet Count 154 X10*3/uL (160-400); Red Blood Count 4.26 X10*6/uL (4.60-5.80); Red Cell Distribution Width 13.8 % (11.0-16.0); White Blood Count 7.9 X10*3/uL (4.8-10.8)
[2022-06-17 10:11] LABS: Alanine Aminotransferase 157 U/L (0-40); Albumin Level 3.1 g/dL (3.5-5.0); Alkaline Phosphatase 42 U/L (39-117); Anion Gap 13 (12-20); Aspartate Amino Transferase 317 U/L (5-37); Bilirubin Total 0.8 mg/dL (0.0-1.0); Blood Urea Nitrogen 11 mg/dL (9-16); Calcium 8.1 mg/dL (8.4-10.2); Carbon Dioxide 28 mmol/L (22-29); Chloride 105 mmol/L (96-108); Creatinine Clr Calc Pharmacy 162.5; Estimated Glomerular Filt Rate > 60; Glucose Random 91 mg/dL (60-115); Potassium 3.9 mmol/L (3.3-5.1); Sodium 142 mmol/L (135-145); Total Protein 5.6 g/dL (6.5-8.0)
[2022-06-17 11:12] VITALS: BP 127/77; PULSE 73; RESP 15; TEMP 36.9; O2SAT 98
--- NOTE | 2022-06-17 11:18 | HO.PM.IMPN ---
Subjective Subjective Date of Service: 06/17/22 Interval History: No acute issues overnight. Noted to have draining abscess right buttocks Review of Systems denies chest pain Denies shortness of breath Denies nausea vomiting diarrhea Physical Exam Vital Signs: Vital Signs: Last Vital Signs Temp 98.4 F 06/17/22 07:25 Pulse 70 06/17/22 07:25 Resp 17 06/17/22 07:25 BP 126/80 06/17/22 07:25 Pulse Ox 97 06/17/22 07:25 O2 Del Method 06/17/22 07:25 O2 Flow Rate 2.0 06/17/22 07:25 Oxygen Flow Rate 2 06/15/22 20:25 BMI result Body Mass Index 33.5 Const: Other: no acute distress Resp: Other: clear to auscultation bilaterally no rales rhonchi or wheezes Cardio: Other: no S4; positive S1-S2; no S3 murmurs rubs or gallops GI: Other: soft positive bowel sounds : Other: 2- 3 cm drain wound left buttocks with surrounding erythema Extrem: Other: no edema bilaterally Objective Data Active Medications Acetaminophen (Acetaminophen 325 Mg Tablet) 650 mg PO Q6H PRN PRN Reason: Pain, Mild (Pain Scale 1-3) Last Admin: 06/17/22 08:49 Dose: 650 mg Documented By: TAINA Docusate Sodium (Docusate Sodium 100 Mg Capsule) 100 mg PO DAILY PRN PRN Reason: Constipation Enoxaparin Sodium (Enoxaparin Sodium 40 Mg/0.4 Ml Syringe) 40 mg SUBCUT Q24H [facility] Last Admin: 06/17/22 08:27 Dose: 40 mg Documented By: TAINA Lactated Ringer's (Lr) 1,000 mls @ 200 mls/hr IVCONT .Q5H [facility] Last Admin: 06/17/22 11:07 Dose: 200 mls/hr Documented By: TAINA Ondansetron HCl (Ondansetron Hcl 4 Mg/2 Ml Vial) 4 mg IVPUSH Q8H PRN PRN Reason: Nausea and Vomiting Sodium Chloride (0.9 % Sodium Chloride Flush 3 Ml Syringe) 3 ml IVFLUSH QSHIFT [facility] Last Admin: 06/17/22 08:28 Dose: 3 ml Documented By: TAINA Sodium Chloride (0.9 % Sodium Chloride Flush 3 Ml Syringe) 3 ml IVFLUSH QSHIFT [facility] Last Admin: 06/17/22 08:28 Dose: 3 ml Documented By: TAINA Labs CBC & Chem 7: 06/17/22 08:30 06/17/22 08:30 Labs: Laboratory Results - last 24 hr 06/16/22 06/16/22 06/16/22 13:35 13:35 15:11 MCV MCH MCHC RDW Plt Count MPV Immature Gran % (Auto) Neut % (Auto) Lymph % (Auto) [place] % (Auto) Eos % (Auto) Baso % (Auto) Lymph # (Auto) [place] # (Auto) Eos # (Auto) Baso # (Auto) Abs Immat Gran (auto) Absolute Neuts (auto) Absolute Nucleated RBC Nucleated RBC % (auto) Anion Gap Estim Creat Clear Calc Estimated GFR Random Glucose Calcium Total Bilirubin AST ALT Alkaline Phosphatase Total Creatine Kinase 99988 H Total Protein Albumin Urine Color Yellow Urine Appearance Clear Urine pH 6.0 Ur Specific [place] 1.025 Urine Protein 100 (2+) H Urine Glucose (UA) Negative Urine Ketones Trace Urine Blood Large (3+) H Urine Nitrite Negative Ur Leukocyte Esterase Negative Urine RBC 0-2 Urine WBC 0-5 Ur Squamous Epith Cells 0-2 Urine Bacteria None Seen Hyaline Casts 0-2 Urine Opiates Screen Not Detected Urine Fentanyl Screen POSITIVE H Ur Barbiturates Screen Not Detected Ur Phencyclidine Scrn POSITIVE H Ur Amphetamines Screen Not Detected U Benzodiazepines Scrn Not Detected Urine Cocaine Screen POSITIVE H U Marijuana (THC) Screen POSITIVE H 06/17/22 06/17/22 08:30 08:30 MCV 91.8 MCH 30.0 MCHC 32.7 RDW 13.8 Plt Count 154 L MPV 9.8 Immature Gran % (Auto) 0.5 H Neut % (Auto) 64.8 Lymph % (Auto) 23.5 [place] % (Auto) 9.3 Eos % (Auto) 1.6 Baso % (Auto) 0.3 Lymph # (Auto) 1.9 [place] # (Auto) 0.7 Eos # (Auto) 0.1 Baso # (Auto) 0.0 Abs Immat Gran (auto) 0.04 H Absolute Neuts (auto) 5.1 Absolute Nucleated RBC 0.000 Nucleated RBC % (auto) 0.0 Anion Gap 13 Estim Creat Clear Calc 162.5 Estimated GFR > 60 Random Glucose 91 Calcium 8.1 L Total Bilirubin 0.8 AST 317 H ALT 157 H Alkaline Phosphatase 42 D Total Creatine Kinase 74774 H Total Protein 5.6 L D Albumin 3.1 L D Urine Color Urine Appearance Urine pH Ur Specific [place] Urine Protein Urine Glucose (UA) Urine Ketones Urine Blood Urine Nitrite Ur Leukocyte Esterase Urine RBC Urine WBC Ur Squamous Epith Cells Urine Bacteria Hyaline Casts Urine Opiates Screen Urine Fentanyl Screen Ur Barbiturates Screen Ur Phencyclidine Scrn Ur Amphetamines Screen U Benzodiazepines Scrn Urine Cocaine Screen U Marijuana (THC) Screen Assessment and Plan (1) Rhabdomyolysis: Status: Acute (2) Abscess: Status: Acute Plan 46-year-old male with past medical history of IV drug use presents to the hospital with fall, found to have significant rhabdomyolysis that is responding to IV volume repletion 1.Rhabdomyolysis -trending downward in response to IV volume repletion -follow CPKs / renals/divalents 2. Abscess(auto draining) -surgical consult -consult from midline prior to antibiotics as patient is only IV accesses in his foot 3.Encephalopathy -resolved DVT prophylaxis: Lovenox Patient will require ongoing hospitalization for IV volume repletion for the treatment of rhabdomyolysis along with IV antibiotics for a left buttocks abscess Quality Stroke Does the patient have a stroke diagnosis?: No VTE Prior VTE?: No VTE Risk Level:: Medical - moderate - high VTE Device Contraindication: Treatment Not Indicated VTE Drug Contraindication: N/A - Med Ordered
--- NOTE | 2022-06-17 12:40 | P.CDIC_ITS ---
CDI Concurrent Query Documentation Clarification: PHYSICIAN'S DOCUMENTATION REQUEST Date of Query: 06/17/22 1240 Patient Name: Nestor Judd Admit Date: 06/15/22 Dear Doctor, A review of the medical record indicates additional documentation may be needed. Please review below and update the documentation accordingly. Clinical Indicators: Is there a diagnosis that correlates with the findings below: Risk Factors/Clinical Indicators/Treatments Per provider note on 06/17: patient with encephalopathy now resolved Based on the above, please further specify, in the Progress Notes, the known or suspected type of the documented encephalopathy: * Metabolic * Septic * Toxic * Toxic metabolic * Hypertensive * Anoxic * Alcoholic * Hepatic (reported as hepatic failure and needs further specificity as to acute, subacute, or chronic) * Due to a specified condition (such as UTI, hyponatremia, CVA, etc.) * Other (please specify) * Unable to determine Use of terms such as suspected, likely, concern for, or probable (associated with a specific diagnosis that is being evaluated, monitored, or treated as if it exists) are acceptable and can be coded in the inpatient setting, when documented at the time of discharge. Thank you, Nanette Rodriguez MS, RN, CCRN Extension: [phone] Please use your independent medical judgment in providing your response. THIS QUERY IS PART OF THE PERMANENT MEDICAL RECORD Provider Response: Other Other Diagnosis: Metabolic encephalopathy
--- NOTE | 2022-06-17 14:52 | HO.MIDLINE ---
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 Using ultrasound guidance, [right basilic] vein access was attempted twice by Darline Armstrong RN, unsuccessfully. Right basilic vein access was obtained on first attempt by La Cowan RN. [A 10CM X 20G Non-PASV Midline was positioned. The procedure was performed in [S272]. Ultrasound was used to document vein patency and for needle entry. A formal ultrasound picture was recorded. [facility] has released the line for use and it is currently dressed with a StatLock, Tegaderm, and CHG disc. Verification has been performed for blood return and line patency. Arm Circumference: [39 CM] Equipment: [BARD PowerGlide ST midline] Catheter Type: [10CM X 20G NON PASV midline] Lot #: [[id number]]
[2022-06-17 15:36] VITALS: BP 132/89; PULSE 79; RESP 18; TEMP 36.6; O2SAT 97
--- NOTE | 2022-06-17 16:10 | PHA.PROG ---
Admission Date/Time: June 15, 2022 23:39 Indication: Abcess Weight in k.862 kg Adjusted body weight in K.7 KG [place] body weight in K. kg Obesity Dosing Indication % IBW: 144% Serum Creatinine - Last 168 Hours 06/15/22 06/16/22 06/17/22 21:01 07:37 08:30 Creatinine 1.18 0.80 0.72 Estimated CrCl and GFR - Last 168 Hours 06/15/22 06/16/22 06/17/22 21:01 07:37 08:30 Estim Creat Clear Calc 99.2 146.3 162.5 Estimated GFR > 60 > 60 > 60 Vancomycin Loading Dose: 2000 mg Current Vancomycin Dosing Regimen: 1250 mg Q12H Date and Time for next Vancomycin Level to be drawn: 06/19 @ 0600 Pharmacist Comments on Vancomycin Plan: Patient is obese, and requires careful monitoring Patient scheduled to recieve vancomycin 2g loading 06/17 @ 1999. Maitenance dose vanco 1250 mg Q12H to begin 06/18 @ 0800. Expected AUC 555 with a trough of 15.5. Trough to be drawn prior to 4th dose Pharmacy to monitor renal function daily. Yumiko Erwin, [place] Vancomycin dosing will take advantage of streamOnce as a clinical decision support tool that uses Bayesian modeling to calculate individual patient's pharmacokinetic parameters and forecast the patient's drug concentration time course with the target goal AUC 24 range of 400 - 600 mg/L/hr.
[2022-06-17] MEDS: Piperacillin Sodium/Tazobactam 3.375 GM in 0.9 % Sodium Chloride 50 ML IV ×2 (17:41→22:28)
[2022-06-17 19:10] VITALS: BP 176/84; PULSE 75; RESP 18; TEMP 36.7; O2SAT 94
[2022-06-18] VITALS (7 sets, daily range): BP systolic 134–172; BP diastolic 74–90; PULSE 70–81; RESP 17–20; TEMP 36.1–37.7; O2SAT 92–97
[2022-06-18] MEDS: Lactated Ringers 1,000 ML 200 ML IVCONT ×3 (01:36→19:15)
[2022-06-18] MEDS: Piperacillin Sodium/Tazobactam 3.375 GM in 0.9 % Sodium Chloride 50 ML IV ×4 (03:51→21:00)
[2022-06-18 06:20] LABS: MANUAL DIFF FLAG NO
[2022-06-18 06:42] LABS: Basophils Percent Auto 0.4 % (0-2); Eosinophils Absolute Auto 0.1 X10*3/uL (0.0-0.4); Eosinophils Percent Auto 2.1 % (0-4); Hematocrit 39.7 % (42.0-52.0); Hemoglobin 12.9 g/dl (14.0-18.0); Imm Gran Abs Auto 0.08 X10*3/uL (0.00-0.03); Imm Gran Pct Auto 1.2 % (0.0-0.4); Lymphocytes Absolute Auto 1.9 X10*3/uL (1.2-4.9); Lymphocytes Percent Auto 27.3 % (20-40); Mean Corpuscular HGB Conc 32.5 g/dl (31.0-36.0); Mean Corpuscular Hemoglobin 29.9 pg (27.0-33.0); Mean Corpuscular Volume 92.1 fL (80.0-98.0); Mean Platelet Volume 10.1 fL (9.4-12.4); Monocytes Absolute Auto 0.6 X10*3/uL (0.1-1.2); Neutrophils Absolute Auto 4.1 x10*3/uL (2.0-8.3); Platelet Count 162 X10*3/uL (160-400); Red Blood Count 4.31 X10*6/uL (4.60-5.80); Red Cell Distribution Width 13.5 % (11.0-16.0); White Blood Count 6.8 X10*3/uL (4.8-10.8)
[2022-06-18 07:23] LABS: Alanine Aminotransferase 125 U/L (0-40); Alkaline Phosphatase 44 U/L (39-117); Anion Gap 13 (12-20); Aspartate Amino Transferase 287 U/L (5-37); Bilirubin Total 0.9 mg/dL (0.0-1.0); Blood Urea Nitrogen 9 mg/dL (9-16); Calcium 8.2 mg/dL (8.4-10.2); Carbon Dioxide 30 mmol/L (22-29); Chloride 104 mmol/L (96-108); Creatinine Clr Calc Pharmacy 139.3; Estimated Glomerular Filt Rate > 60; Glucose Fasting 90 mg/dL (60-99); Potassium 3.9 mmol/L (3.3-5.1); Sodium 143 mmol/L (135-145); Total Protein 5.6 g/dL (6.5-8.0)
[2022-06-18] MEDS: 0.9 % Sodium Chloride Flush 3 ML SYRINGE IVFLUSH (08:01)
[2022-06-18] MEDS: Enoxaparin Sodium 40 MG/0.4 ML SYRINGE SUBCUT (08:01)
[2022-06-18] MEDS: vancomycin HCL 1,250 MG in 0.9 % Sodium Chloride 250 ML 166.67 MG IV ×2 (08:01→19:18)
--- NOTE | 2022-06-18 09:05 | HE.PHANOTE ---
leida doyle continue current dose, next trough scheduled for 06/19 @0600
--- NOTE | 2022-06-18 12:43 | P.PNIM_ITS ---
Subjective Subjective Date of Service: 06/18/22 Interval History: No acute events overnight Review of Systems denies chest pain Denies shortness of breath Denies nausea vomiting diarrhea Physical Exam Vital Signs: Vital Signs: Last Vital Signs Temp 97 F 06/18/22 11:01 Pulse 70 06/18/22 11:01 Resp 20 06/18/22 11:01 BP 152/90 H 06/18/22 11:01 Pulse Ox 94 06/18/22 11:01 O2 Del Method 06/18/22 11:01 O2 Flow Rate 2 06/18/22 06:49 Oxygen Flow Rate 2 06/15/22 20:25 BMI result Body Mass Index 33.5 Const: Other: no acute distress Resp: Other: clear to auscultation bilaterally no rales rhonchi or wheezes Cardio: Other: no S4; positive S1-S2; no S3 murmurs rubs or gallops GI: Other: soft positive bowel sounds : Other: 2- 3 cm drain wound left buttocks with surrounding erythema Extrem: Other: no edema bilaterally Objective Data Active Medications Acetaminophen (Acetaminophen 325 Mg Tablet) 650 mg PO Q6H PRN PRN Reason: Pain, Mild (Pain Scale 1-3) Last Admin: 06/17/22 08:49 Dose: 650 mg Documented By: TAINA Docusate Sodium (Docusate Sodium 100 Mg Capsule) 100 mg PO DAILY PRN PRN Reason: Constipation Enoxaparin Sodium (Enoxaparin Sodium 40 Mg/0.4 Ml Syringe) 40 mg SUBCUT Q24H [facility] Last Admin: 06/18/22 08:01 Dose: 40 mg Documented By: JENNIE Vancomycin HCl 1,250 mg/ (Sodium Chloride) 250 mls @ 166.667 mls/hr IV Q12H [facility] Last Infusion: 06/18/22 10:19 Dose: 0 mls/hr Documented By: JENNIE Piperacillin Sod/Tazobactam (Sod 3.375 gm/ Sodium Chloride) 50 mls @ 100 mls/hr IV Q6H [facility] Last Infusion: 06/18/22 11:11 Dose: 0 mls/hr Documented By: JENNIE Lactated Ringer's (Lr) 1,000 mls @ 200 mls/hr IVCONT .Q5H [facility] Ondansetron HCl (Ondansetron Hcl 4 Mg/2 Ml Vial) 4 mg IVPUSH Q8H PRN PRN Reason: Nausea and Vomiting Pharmacy Consult (Consult Rx Vancomycin Dosing) 1 each MISCELLANE DAILY PRN PRN Reason: Consult order Sodium Chloride (0.9 % Sodium Chloride Flush 3 Ml Syringe) 3 ml IVFLUSH QSLAFT [facility] Last Admin: 06/18/22 08:01 Dose: 3 ml Documented By: JENNIE Sodium Chloride (0.9 % Sodium Chloride Flush 3 Ml Syringe) 3 ml IVFLUSH [facility] Last Admin: 06/18/22 08:01 Dose: Not Given Documented By: JENNIE Non-Admin Reason: Duplicate Order Labs CBC & Chem 7: 06/18/22 05:12 06/18/22 05:12 Labs: Laboratory Results - last 24 hr 06/18/22 06/18/22 05:12 05:12 MCV 92.1 MCH 29.9 MCHC 32.5 RDW 13.5 Plt Count 162 MPV 10.1 Immature Gran % (Auto) 1.2 H Neut % (Auto) 60.0 Lymph % (Auto) 27.3 [place] % (Auto) 9.0 Eos % (Auto) 2.1 Baso % (Auto) 0.4 Lymph # (Auto) 1.9 [place] # (Auto) 0.6 Eos # (Auto) 0.1 Baso # (Auto) 0.0 Abs Immat Gran (auto) 0.08 H Absolute Neuts (auto) 4.1 Absolute Nucleated RBC 0.000 Nucleated RBC % (auto) 0.0 Anion Gap 13 Estim Creat Clear Calc 139.3 Estimated GFR > 60 Fasting Glucose 90 Calcium 8.2 L Total Bilirubin 0.9 AST 287 H ALT 125 H Alkaline Phosphatase 44 Total Creatine Kinase 80750 H Total Protein 5.6 L Albumin 3.0 L Assessment and Plan (1) Rhabdomyolysis: Status: Acute (2) Abscess: Status: Acute (3) Encephalopathy: Status: Acute Plan 46-year-old male with past medical history of IV drug use presents to the hospital with fall, found to have significant rhabdomyolysis that is responding to IV volume repletion 1.Rhabdomyolysis -trending downward in response to IV volume repletion -follow CPKs / renals/divalents 2. Abscess(auto draining) -surgical consult -Vanco/Zosyn(2) 3.Encephalopathy -resolved DVT prophylaxis: Lovenox Patient will require ongoing hospitalization for IV volume repletion for the treatment of rhabdomyolysis along with IV antibiotics for a left buttocks abscess Quality Stroke Does the patient have a stroke diagnosis?: No VTE Prior VTE?: No VTE Risk Level:: Medical - moderate - high VTE Device Contraindication: Treatment Not Indicated VTE Drug Contraindication: N/A - Med Ordered
--- NOTE | 2022-06-18 12:57 | PM.CNGS ---
History of Present Illness Consult details Consult date: 06/18/22 Narrative: The patient reports several days to possibly a week of buttocks pain, right greater than left. He denies prior history of perianal or perirectal abscess. He denies any falls or recent trauma. Review of Systems Review of Systems: Yes all other systems are reviewed and are negative Constitutional: Constitutional: Reports as per [facility] Social History Social History Household Members: Family Housing: Apartment Do you presently have visiting nurse or other home services: No Unable to assess alcohol history related to: Refusing to respond Patient Tobacco Use Status: Current everyday Tobacco user Cigarette Packs Per Day: 1 Cigarettes Per Day: 20.0 service: No Current occupational status: other Meds Allergies Allergy/AdvReac Type Severity Reaction Status Date / Time aspirin [ASPIRIN] Allergy Intermediate RASH, HIVES Verified 06/16/22 10:07 Active Medications: Current Medications Acetaminophen (Acetaminophen 325 Mg Tablet) 650 mg PO Q6H PRN PRN Reason: Pain, Mild (Pain Scale 1-3) Last Admin: 06/17/22 08:49 Dose: 650 mg Docusate Sodium (Docusate Sodium 100 Mg Capsule) 100 mg PO DAILY PRN PRN Reason: Constipation Enoxaparin Sodium (Enoxaparin Sodium 40 Mg/0.4 Ml Syringe) 40 mg SUBCUT Q24H [facility] Last Admin: 06/18/22 08:01 Dose: 40 mg Vancomycin HCl 1,250 mg/ (Sodium Chloride) 250 mls @ 166.667 mls/hr IV Q12H [facility] Last Infusion: 06/18/22 10:19 Dose: Infused Piperacillin Sod/Tazobactam (Sod 3.375 gm/ Sodium Chloride) 50 mls @ 100 mls/hr IV Q6H [facility] Last Infusion: 06/18/22 11:11 Dose: Infused Lactated Ringer's (Lr) 1,000 mls @ 200 mls/hr IVCONT .Q5H JOELLE Ondansetron HCl (Ondansetron Hcl 4 Mg/2 Ml Vial) 4 mg IVPUSH Q8H PRN PRN Reason: Nausea and Vomiting Pharmacy Consult (Consult Rx Vancomycin Dosing) 1 each MISCELLANE DAILY PRN PRN Reason: Consult order Sodium Chloride (0.9 % Sodium Chloride Flush 3 Ml Syringe) [facility] Last Admin: 06/18/22 08:01 Dose: 3 ml Sodium Chloride (0.9 % Sodium Chloride Flush 3 Ml Syringe) 3 ml IVFLUSH [facility] Last Admin: 06/18/22 08:01 Dose: Not Given Home Medications Medication Instructions Recorded Confirmed Last Taken Type No Known Home Meds 06/16/22 06/16/22 Unknown History Physical Exam Vital Signs: Vital Signs: Last Vital Signs Temp 97 F 06/18/22 11:01 Pulse 70 06/18/22 11:01 Resp 20 06/18/22 11:01 BP 152/90 H 06/18/22 11:01 Pulse Ox 94 06/18/22 11:01 O2 Del Method 06/18/22 11:01 O2 Flow Rate 2 06/18/22 06:49 Oxygen Flow Rate 2 06/15/22 20:25 BMI result Body Mass Index 33.5 The patient is communicative and nontoxic Mood and affect seem appropriate Heart is regular, normal S1-S2 Lungs are clear and equal anteriorly Abdomen is overweight, soft and nontender with no peritoneal sign On the right buttock, there is superficial maceration of the epidermis into the dermis with erythema but no fluctuance to suggest a large abscess. This erythema continues into the devi cleft and no discrete abscess is palpable on the patient's left. The perianal area does not have a palpable, fluctuant abscess but rather cellulitic skin change. Results Labs Result diagrams: 06/18/22 05:12 06/18/22 05:12 Labs: Abnormal lab results 06/18/22 06/18/22 Range/Units 05:12 05:12 RBC 4.31 L (4.60-5.80) X10*6/uL Hgb 12.9 L (14.0-18.0) g/dl Hct 39.7 L (42.0-52.0) % Immature Gran % (Auto) 1.2 H (0.0-0.4) % Abs Immat Gran (auto) 0.08 H (0.00-0.03) X10*3/uL Carbon Dioxide 30 H (22-29) mmol/L Calcium 8.2 L (8.4-10.2) mg/dL AST 287 H (5-37) U/L ALT 125 H (0-40) U/L Total Creatine Kinase 01965 H (38-174) U/L Total Protein 5.6 L (6.5-8.0) g/dL Albumin 3.0 L (3.5-5.0) g/dL Short CBC 06/18/22 Range/Units 05:12 WBC 6.8 (4.8-10.8) X10*3/uL Hgb 12.9 L (14.0-18.0) g/dl Hct 39.7 L (42.0-52.0) % Plt Count 162 (160-400) X10*3/uL BMP 06/18/22 05:12 Sodium 143 Potassium 3.9 Chloride 104 Carbon Dioxide 30 H BUN 9 Creatinine 0.84 Calcium 8.2 L Cardiac Enzymes 06/18/22 Range/Units 05:12 Total Creatine Kinase 68693 H (38-174) U/L Liver Function 06/18/22 Range/Units 05:12 Total Bilirubin 0.9 (0.0-1.0) mg/dL AST 287 H (5-37) U/L ALT 125 H (0-40) U/L Alkaline Phosphatase 44 (39-117) U/L Albumin 3.0 L (3.5-5.0) g/dL Urine 06/16/22 Range/Units 13:35 Urine Color Yellow Urine Appearance Clear Urine pH 6.0 (5.0-9.0) Ur Specific [place] 1.025 (1.005-1.025) Urine Protein 100 (2+) H (Neg-Trace) mg/dL Urine Glucose (UA) Negative (Negative) mg/dL All other labs normal. Assessment and Plan (1) Rhabdomyolysis: Status: Acute (2) Encephalopathy: Status: Acute (3) Intravenous drug user: Status: Acute (4) Cellulitis, gluteal, right: Status: Acute Plan Based on physical exam, I do not believe the patient has an abscess, but rather has a decubitus with superficial cellulitis. A CT of the pelvis would help exclude a deeper collection, but given the patient's white count is improving, continuing to follow him clinically as the other option. We will continue to follow with you. Please call me with questions. Procedures Date of Service Date of Service: 06/18/22
--- NOTE | 2022-06-18 13:30 | MHC.CM.PN ---
EMR REVIEW, PATIENT HAD MIDLINE INSERTED ON 06/17. PATIENT IS RECEIVING IV ANTIBIOTICS FOR LEFT BUTTOCKS ABSCESS; ALSO IV VOLUME REPLETION FOR TREATMENT OF RHABDOMYOLYSIS. D/C PLAN CONTINUES TO BE HOME SELF-CARE. CM WILL CONTINUE TO FOLLOW FOR DISCHARGE NEEDS.
[2022-06-19] MEDS: Lactated Ringers 1,000 ML 200 ML IVCONT ×2 (00:51→05:01)
[2022-06-19 03:02] VITALS: BP 137/81; PULSE 76; RESP 16; TEMP 37.3; O2SAT 94
[2022-06-19] MEDS: Acetaminophen 325 MG TABLET 650 MG PO (05:05)
[2022-06-19] MEDS: Piperacillin Sodium/Tazobactam 3.375 GM in 0.9 % Sodium Chloride 50 ML IV ×3 (05:05→18:18)
[2022-06-19 07:10] LABS: MANUAL DIFF FLAG NO
[2022-06-19 07:18] LABS: Basophils Percent Auto 0.4 % (0-2); Eosinophils Absolute Auto 0.2 X10*3/uL (0.0-0.4); Eosinophils Percent Auto 2.5 % (0-4); Hematocrit 38.7 % (42.0-52.0); Imm Gran Abs Auto 0.09 X10*3/uL (0.00-0.03); Imm Gran Pct Auto 1.3 % (0.0-0.4); Lymphocytes Absolute Auto 1.8 X10*3/uL (1.2-4.9); Lymphocytes Percent Auto 25.5 % (20-40); Mean Corpuscular HGB Conc 33.6 g/dl (31.0-36.0); Mean Corpuscular Hemoglobin 30.2 pg (27.0-33.0); Mean Corpuscular Volume 89.8 fL (80.0-98.0); Mean Platelet Volume 10.2 fL (9.4-12.4); Monocytes Absolute Auto 0.7 X10*3/uL (0.1-1.2); Monocytes Percent Auto 9.3 % (2-11); Neutrophils Absolute Auto 4.3 x10*3/uL (2.0-8.3); Platelet Count 166 X10*3/uL (160-400); Red Blood Count 4.31 X10*6/uL (4.60-5.80); Red Cell Distribution Width 13.3 % (11.0-16.0); White Blood Count 7.1 X10*3/uL (4.8-10.8)
[2022-06-19 07:41] LABS: Vancomycin Trough 9.5 mcg/mL (10.0-20.0)
[2022-06-19 07:57] LABS: Alanine Aminotransferase 110 U/L (0-40); Alkaline Phosphatase 41 U/L (39-117); Anion Gap 15 (12-20); Aspartate Amino Transferase 247 U/L (5-37); Bilirubin Total 1.1 mg/dL (0.0-1.0); Blood Urea Nitrogen 10 mg/dL (9-16); Calcium 8.3 mg/dL (8.4-10.2); Carbon Dioxide 29 mmol/L (22-29); Chloride 104 mmol/L (96-108); Creatinine Clr Calc Pharmacy 146.3; Estimated Glomerular Filt Rate > 60; Glucose Fasting 101 mg/dL (60-99); Sodium 144 mmol/L (135-145); Total Protein 5.7 g/dL (6.5-8.0)
[2022-06-19] MEDS: 0.9 % Sodium Chloride 1,000 ML 125 ML IVCONT ×2 (08:05→18:18)
--- NOTE | 2022-06-19 08:10 | HE.PHANOTE ---
Vancomycin Dosing Addendum Vancomycin Trough 9.5. Increasing dose to 1500 mg q12h. Next trough 06/20/22 @0700
[2022-06-19] MEDS: vancomycin HCL 1,500 MG in 0.9 % Sodium Chloride 500 ML 333.33 MG IV ×2 (09:06→22:16)
[2022-06-19] MEDS: Enoxaparin Sodium 40 MG/0.4 ML SYRINGE SUBCUT (09:07)
[2022-06-19] MEDS: iohexoL 350 MG/ML 100 ML INFUS..BTL IV (10:39)
[2022-06-19 12:00] VITALS: BP 148/98; PULSE 69; RESP 15; TEMP 36.5; O2SAT 93
--- NOTE | 2022-06-19 12:56 | PC.NURSE ---
PT non compliant - RN explained 3 times to pt to maintain NPO before CT scan, reported vomiting. C/O sob Yoan ONEAL aware, sat 93%, refused to sit up for lunch insisted he eat lying down, refused to ambulate or sit in recliner - Yoan ONEAL aware
--- NOTE | 2022-06-19 14:02 | HO.PM.IMPN ---
Subjective Subjective Date of Service: 06/19/22 Interval History: Denies pain or fever Not interested in MAT Review of Systems Review of Systems: Yes all other systems are reviewed and are negative Physical Exam Vital Signs: Vital Signs: Last Vital Signs Temp 97.7 F 06/19/22 12:00 Pulse 69 06/19/22 12:00 Resp 15 06/19/22 12:00 BP 148/98 H 06/19/22 12:00 Pulse Ox 93 06/19/22 12:00 O2 Del Method 06/19/22 12:00 O2 Flow Rate 2 06/18/22 06:49 Oxygen Flow Rate 2 06/15/22 20:25 BMI result Body Mass Index 33.5 Gen: in no acute distress HEENT: sclera anicteric, moist mucus membranes Neck: supple Lungs: clear to auscultation bilaterally Heart: regular rate and rhythm, no murmurs Abd: soft, non-tender, non-distended Ext: no edema Skin: R buttock with erythema but no fluctuance Neuro: alert and oriented x3, no focal findings Psych: appropriate affect Objective Data Active Medications Acetaminophen (Acetaminophen 325 Mg Tablet) 650 mg PO Q6H PRN PRN Reason: Pain, Mild (Pain Scale 1-3) Last Admin: 06/19/22 05:05 Dose: 650 mg Documented By: BARRY Docusate Sodium (Docusate Sodium 100 Mg Capsule) 100 mg PO DAILY PRN PRN Reason: Constipation Enoxaparin Sodium (Enoxaparin Sodium 40 Mg/0.4 Ml Syringe) 40 mg SUBCUT Q24H JOELLE Last Admin: 06/19/22 09:07 Dose: 40 mg Documented By: LASHAWN Piperacillin Sod/Tazobactam (Sod 3.375 gm/ Sodium Chloride) 50 mls @ 100 mls/hr IV Q6H [facility] Last Infusion: 06/19/22 12:38 Dose: 0 mls/hr Documented By: LASHAWN Sodium Chloride (Ns) 1,000 mls @ 125 mls/hr IVCONT .Q8H JOELLE Last Infusion: 06/19/22 12:38 Dose: 125 mls/hr Documented By: LASHAWN Vancomycin HCl 1,500 mg/ (Sodium Chloride) 500 mls @ 333.333 mls/hr IV Q12H [facility] Last Infusion: 06/19/22 10:12 Dose: 0 mls/hr Documented By: LASHAWN Ondansetron HCl (Ondansetron Hcl 4 Mg/2 Ml Vial) 4 mg IVPUSH Q8H PRN PRN Reason: Nausea and Vomiting Oxycodone HCl (Oxycodone Hcl Immed Release 5 Mg Tablet) 10 mg PO Q4H PRN PRN Reason: Pain, Moderate (Pain Scale 4-6 Pharmacy Consult (Consult Rx Vancomycin Dosing) 1 each MISCELLANE DAILY PRN PRN Reason: Consult order Sodium Chloride (0.9 % Sodium Chloride Flush 3 Ml Syringe) 3 ml IVFLUSH [facility] Last Admin: 06/19/22 08:33 Dose: Not Given Documented By: LASHAWN Non-Admin Reason: IV Running Sodium Chloride (0.9 % Sodium Chloride Flush 3 Ml Syringe) 3 ml IVFLUSH [facility] Last Admin: 06/19/22 09:07 Dose: Not Given Documented By: LASHAWN Non-Admin Reason: IV Running Labs CBC & Chem 7: 06/19/22 05:58 06/19/22 05:58 Labs: Laboratory Results - last 24 hr 06/19/22 06/19/22 06/19/22 05:58 05:58 05:58 MCV 89.8 MCH 30.2 MCHC 33.6 RDW 13.3 Plt Count 166 MPV 10.2 Immature Gran % (Auto) 1.3 H Neut % (Auto) 61.0 Lymph % (Auto) 25.5 [place] % (Auto) 9.3 Eos % (Auto) 2.5 Baso % (Auto) 0.4 Lymph # (Auto) 1.8 [place] # (Auto) 0.7 Eos # (Auto) 0.2 Baso # (Auto) 0.0 Abs Immat Gran (auto) 0.09 H Absolute Neuts (auto) 4.3 Absolute Nucleated RBC 0.000 Nucleated RBC % (auto) 0.0 Anion Gap 15 Estim Creat Clear Calc 146.3 Estimated GFR > 60 Fasting Glucose 101 H Calcium 8.3 L Total Bilirubin 1.1 H AST 247 H ALT 110 H Alkaline Phosphatase 41 Total Creatine Kinase 9784 H Total Protein 5.7 L Albumin 3.0 L Vancomycin Trough 9.5 L Assessment and Plan (1) Rhabdomyolysis: Status: Acute (2) Abscess: Status: Acute (3) Encephalopathy: Status: Acute Plan hospital d#5 46yo M with hx IDU presenting after fall and admitted for rhabdomyolysis # rhabdomyolysis - continue IV fluids, change to isotonic saline, trend CPK # cellulitis - surgery consulted, on vanc + pip/maria esther d#3, CT pelvis to r/o deeper collection # toxic metabolic encehalopathy - resolved # polysubstance abuse (cocaine, opioid, ?PCP) - CARE Team consult # VTE ppx: LMWH In my clinical judgment, the patient requires continued hospitalization for the following reasons: IV fluids, IV antibiotics Quality Stroke Does the patient have a stroke diagnosis?: No VTE Prior VTE?: No VTE Risk Level:: Medical - moderate - high VTE Device Contraindication: Treatment Not Indicated VTE Drug Contraindication: N/A - Med Ordered
[2022-06-19 16:00] VITALS: BP 156/83; PULSE 72; RESP 14; TEMP 36.7; O2SAT 94
[2022-06-19 19:52] VITALS: BP 140/91; PULSE 74; RESP 16; TEMP 37.4; O2SAT 94
[2022-06-19 23:14] VITALS: BP 146/84; PULSE 72; RESP 20; TEMP 36.6; O2SAT 91
[2022-06-20] MEDS: Piperacillin Sodium/Tazobactam 3.375 GM in 0.9 % Sodium Chloride 50 ML IV ×5 (00:02→23:12)
[2022-06-20] MEDS: 0.9 % Sodium Chloride 1,000 ML 125 ML IVCONT ×3 (02:41→19:30)
[2022-06-20 03:45] VITALS: BP 144/83; PULSE 61; RESP 20; TEMP 36.6; O2SAT 93
[2022-06-20 06:45] LABS: MANUAL DIFF FLAG NO
[2022-06-20 06:51] LABS: Basophils Percent Auto 0.3 % (0-2); Eosinophils Absolute Auto 0.2 X10*3/uL (0.0-0.4); Eosinophils Percent Auto 3.3 % (0-4); Hematocrit 39.8 % (42.0-52.0); Hemoglobin 13.3 g/dl (14.0-18.0); Imm Gran Pct Auto 1.4 % (0.0-0.4); Lymphocytes Absolute Auto 1.8 X10*3/uL (1.2-4.9); Lymphocytes Percent Auto 25.7 % (20-40); Mean Corpuscular HGB Conc 33.4 g/dl (31.0-36.0); Mean Corpuscular Hemoglobin 30.4 pg (27.0-33.0); Mean Corpuscular Volume 91.1 fL (80.0-98.0); Mean Platelet Volume 9.5 fL (9.4-12.4); Monocytes Absolute Auto 0.6 X10*3/uL (0.1-1.2); Neutrophils Absolute Auto 4.2 x10*3/uL (2.0-8.3); Neutrophils Percent Auto 60.3 % (45-73); Platelet Count 165 X10*3/uL (160-400); Red Blood Count 4.37 X10*6/uL (4.60-5.80); Red Cell Distribution Width 13.4 % (11.0-16.0); White Blood Count 6.9 X10*3/uL (4.8-10.8)
[2022-06-20 07:04] VITALS: BP 120/82; PULSE 64; RESP 18; TEMP 36.1; O2SAT 95
[2022-06-20 07:08] LABS: Vancomycin Trough 13.2 mcg/mL (10.0-20.0)
[2022-06-20 07:20] LABS: Alanine Aminotransferase 96 U/L (0-40); Albumin Level 3.1 g/dL (3.5-5.0); Alkaline Phosphatase 41 U/L (39-117); Anion Gap 12 (12-20); Aspartate Amino Transferase 178 U/L (5-37); Bilirubin Total 1.2 mg/dL (0.0-1.0); Blood Urea Nitrogen 9 mg/dL (9-16); Calcium 8.3 mg/dL (8.4-10.2); Carbon Dioxide 27 mmol/L (22-29); Chloride 106 mmol/L (96-108); Creatinine Clr Calc Pharmacy 142.7; Estimated Glomerular Filt Rate > 60; Glucose Fasting 123 mg/dL (60-99); Sodium 141 mmol/L (135-145); Total Protein 5.9 g/dL (6.5-8.0)
--- NOTE | 2022-06-20 07:33 | HE.PHANOTE ---
vancomycin addendum yesterday the vanco dose was increased to 1500 mg q 12 hour, level after 2 doses increased to 13.2 with predicted AUC of 454, will obtain another level tomorrow
[2022-06-20] MEDS: vancomycin HCL 1,500 MG in 0.9 % Sodium Chloride 500 ML 333.33 MG IV ×2 (08:39→19:29)
[2022-06-20] MEDS: Enoxaparin Sodium 40 MG/0.4 ML SYRINGE SUBCUT (08:42)
--- NOTE | 2022-06-20 10:25 | HO.PM.IMPN ---
Subjective Subjective Date of Service: 06/20/22 Interval History: no complaints declines MAT Review of Systems Review of Systems: Yes all other systems are reviewed and are negative Physical Exam Vital Signs: Vital Signs: Last Vital Signs Temp 97 F 06/20/22 07:04 Pulse 64 06/20/22 07:04 Resp 18 06/20/22 07:04 BP 120/82 06/20/22 07:04 Pulse Ox 95 06/20/22 07:04 O2 Del Method 06/20/22 07:04 O2 Flow Rate 2 06/18/22 06:49 Oxygen Flow Rate 2 06/15/22 20:25 BMI result Body Mass Index 33.5 Gen: in no acute distress HEENT: sclera anicteric, moist mucus membranes Neck: supple Lungs: clear to auscultation bilaterally Heart: regular rate and rhythm, no murmurs Abd: soft, non-tender, non-distended Ext: no edema Skin: R buttock with erythema but no fluctuance Neuro: alert and oriented x3, no focal findings Psych: appropriate affect Objective Data Active Medications Acetaminophen (Acetaminophen 325 Mg Tablet) 650 mg PO Q6H PRN PRN Reason: Pain, Mild (Pain Scale 1-3) Last Admin: 06/19/22 05:05 Dose: 650 mg Documented By: BARRY Docusate Sodium (Docusate Sodium 100 Mg Capsule) 100 mg PO DAILY PRN PRN Reason: Constipation Enoxaparin Sodium (Enoxaparin Sodium 40 Mg/0.4 Ml Syringe) 40 mg SUBCUT Q24H [facility] Last Admin: 06/20/22 08:42 Dose: 40 mg Documented By: LASHAWN Sodium Chloride (Ns) 1,000 mls @ 125 mls/hr IVCONT .Q8H [facility] Last Infusion: 06/20/22 05:23 Dose: 125 mls/hr Documented By: BARRY Vancomycin HCl 1,500 mg/ (Sodium Chloride) 500 mls @ 333.333 mls/hr IV Q12H [facility] Last Admin: 06/20/22 08:39 Dose: 333.33 mls/hr Documented By: LASHAWN Piperacillin Sod/Tazobactam (Sod 3.375 gm/ Sodium Chloride) 50 mls @ 100 mls/hr IV Q6H [facility] Last Infusion: 06/20/22 05:23 Dose: 0 mls/hr Documented By: BARRY Ondansetron HCl (Ondansetron Hcl 4 Mg/2 Ml Vial) 4 mg IVPUSH Q8H PRN PRN Reason: Nausea and Vomiting Oxycodone HCl (Oxycodone Hcl Immed Release 5 Mg Tablet) 10 mg PO Q4H PRN PRN Reason: Pain, Moderate (Pain Scale 4-6 Pharmacy Consult (Consult Rx Vancomycin Dosing) 1 each MISCELLANE DAILY PRN PRN Reason: Consult order Sodium Chloride (0.9 % Sodium Chloride Flush 3 Ml Syringe) 3 ml IVFLUSH [facility] Last Admin: 06/20/22 08:43 Dose: Not Given Documented By: LASHAWN Non-Admin Reason: IV Running Sodium Chloride (0.9 % Sodium Chloride Flush 3 Ml Syringe) 3 ml IVFLUSH [facility] Last Admin: 06/20/22 08:43 Dose: Not Given Documented By: LASHAWN Non-Admin Reason: IV Running Labs CBC & Chem 7: 06/20/22 06:41 06/20/22 06:41 Labs: Laboratory Results - last 24 hr 06/20/22 06/20/22 06/20/22 06:41 06:41 06:41 MCV 91.1 MCH 30.4 MCHC 33.4 RDW 13.4 Plt Count 165 MPV 9.5 Immature Gran % (Auto) 1.4 H Neut % (Auto) 60.3 Lymph % (Auto) 25.7 [place] % (Auto) 9.0 Eos % (Auto) 3.3 Baso % (Auto) 0.3 Lymph # (Auto) 1.8 [place] # (Auto) 0.6 Eos # (Auto) 0.2 Baso # (Auto) 0.0 Abs Immat Gran (auto) 0.10 H Absolute Neuts (auto) 4.2 Absolute Nucleated RBC 0.000 Nucleated RBC % (auto) 0.0 Anion Gap 12 Estim Creat Clear Calc 142.7 Estimated GFR > 60 Random Glucose TNP Fasting Glucose 123 H Calcium 8.3 L Total Bilirubin 1.2 H AST 178 H ALT 96 H Alkaline Phosphatase 41 Total Creatine Kinase 5788 H D Total Protein 5.9 L Albumin 3.1 L Vancomycin Trough 13.2 ITS Impressions Cervical Spine CT 06/15/22 20:52 IMPRESSION: 1. No acute intracranial pathology. 2. No CT evidence of acute cervical spine fracture or traumatic subluxation Head CT 06/15/22 20:52 IMPRESSION: 1. No acute intracranial pathology. 2. No CT evidence of acute cervical spine fracture or traumatic subluxation Chest X-Ray 06/15/22 22:30 IMPRESSION: Unremarkable examination. Pelvis CT 06/19/22 10:29 IMPRESSION: 1. No perirectal/perianal fluid collection to suggest abscess. No appreciable rectal wall thickening. 2. Trace free pelvic fluid and presacral edema. Assessment and Plan (1) Rhabdomyolysis: Status: Acute (2) Abscess: Status: Acute (3) Encephalopathy: Status: Acute Plan hospital d#6 46yo M with hx IDU presenting after fall and admitted for rhabdomyolysis # rhabdomyolysis - continue IV isotonic saline until CPK <5000 # cellulitis - surgery consulted, on vanc + pip/maria esther d#4, CT pelvis ruled out deeper collection, likely change to doxy + amox/clav tomorrow # toxic metabolic encehalopathy - resolved # polysubstance abuse (cocaine, opioid, ?PCP) - CARE Team consult # VTE ppx: LMWH In my clinical judgment, the patient requires continued hospitalization for the following reasons: IV fluids, IV antibiotics; anticipate d/c home tomorrow Quality Stroke Does the patient have a stroke diagnosis?: No VTE Prior VTE?: No VTE Risk Level:: Medical - moderate - high VTE Device Contraindication: Treatment Not Indicated VTE Drug Contraindication: N/A - Med Ordered
[2022-06-20 11:39] VITALS: BP 148/74; PULSE 66; RESP 18; TEMP 36.1; O2SAT 98
--- NOTE | 2022-06-20 12:02 | MHC.RECOVSUP ---
PT IS A 46YR OLD MALE WHO WAS ADMITTED TO THE HOSPITAL FOR ALTERED MENTAL STATUS AND FALL. I WAS ASKED TO SEE PT ON THE MED FLOOR. WENT TO SEE PT AND EXPLAINED MY ROLE A PHOTOCOMPOSING MACHINE OPERATOR IN THE HOSPITAL. I ASKED PT IF HE WOULD BE INTERESTED IN HAVING A PHOTOCOMPOSING MACHINE OPERATOR WHEN HE IS DISCHARGE. PT STATED THAT AT THIS TIME HE DOESN'T NEED MY SERVICES. I GAVE PT SOME INFORMATION AND RESOURCES.
[2022-06-20 16:00] VITALS: BP 142/88; PULSE 66; RESP 17; TEMP 36.7; O2SAT 95
[2022-06-20] MEDS: Acetaminophen 325 MG TABLET 650 MG PO (19:38)
[2022-06-20] MEDS: oxyCODONE HCl Immed Release 5 MG TABLET 10 MG PO (19:39)
[2022-06-20 20:00] VITALS: BP 137/79; PULSE 65; RESP 18; TEMP 36.8; O2SAT 95
[2022-06-20 23:36] VITALS: BP 138/85; PULSE 65; RESP 18; TEMP 36.1; O2SAT 96
[2022-06-21 03:15] VITALS: RESP 16
[2022-06-21 03:32] LABS: ~Hepatitis C Antibody Reactive (Nonreactive)
[2022-06-21 03:36] LABS: HBc Num1 0.06 S/CO (0.00-0.79); HBsAGNum1 0.24 S/CO (0.00-0.99); HIV AB/AG Nonreactive (Nonreactive); Hepatitis B Core Antibody Nonreactive (Nonreactive); Hepatitis B Surface Antigen Negative (Negative); ~Hepatitis B Surface Antibody NONREACTIVE (Nonreactive)
[2022-06-21] MEDS: 0.9 % Sodium Chloride 1,000 ML 125 ML IVCONT (05:13)
[2022-06-21] MEDS: Piperacillin Sodium/Tazobactam 3.375 GM in 0.9 % Sodium Chloride 50 ML IV (05:14)
[2022-06-21 06:06] LABS: MANUAL DIFF FLAG NO
[2022-06-21 06:13] LABS: Basophils Percent Auto 0.4 % (0-2); Eosinophils Absolute Auto 0.2 X10*3/uL (0.0-0.4); Eosinophils Percent Auto 3.2 % (0-4); Hemoglobin 13.4 g/dl (14.0-18.0); Imm Gran Abs Auto 0.11 X10*3/uL (0.00-0.03); Imm Gran Pct Auto 1.6 % (0.0-0.4); Lymphocytes Absolute Auto 1.9 X10*3/uL (1.2-4.9); Lymphocytes Percent Auto 26.1 % (20-40); Mean Corpuscular HGB Conc 33.5 g/dl (31.0-36.0); Mean Corpuscular Hemoglobin 30.5 pg (27.0-33.0); Mean Corpuscular Volume 90.9 fL (80.0-98.0); Monocytes Absolute Auto 0.6 X10*3/uL (0.1-1.2); Monocytes Percent Auto 7.9 % (2-11); Neutrophils Absolute Auto 4.3 x10*3/uL (2.0-8.3); Neutrophils Percent Auto 60.8 % (45-73); Platelet Count 176 X10*3/uL (160-400); Red Cell Distribution Width 13.3 % (11.0-16.0); White Blood Count 7.1 X10*3/uL (4.8-10.8)
[2022-06-21 06:31] LABS: Vancomycin Trough 15.7 mcg/mL (10.0-20.0)
[2022-06-21 06:44] LABS: Alanine Aminotransferase 83 U/L (0-40); Albumin Level 3.2 g/dL (3.5-5.0); Alkaline Phosphatase 39 U/L (39-117); Anion Gap 13 (12-20); Aspartate Amino Transferase 125 U/L (5-37); Blood Urea Nitrogen 10 mg/dL (9-16); Calcium 8.2 mg/dL (8.4-10.2); Carbon Dioxide 26 mmol/L (22-29); Chloride 107 mmol/L (96-108); Creatinine Clr Calc Pharmacy 144.5; Estimated Glomerular Filt Rate > 60; Glucose Fasting 94 mg/dL (60-99); Potassium 4.2 mmol/L (3.3-5.1); Sodium 142 mmol/L (135-145)
[2022-06-21 06:49] VITALS: BP 132/90; PULSE 64; RESP 17; TEMP 36; O2SAT 98
[2022-06-21] MEDS: vancomycin HCL 1,500 MG in 0.9 % Sodium Chloride 500 ML 333.33 MG IV (07:34)
[2022-06-21] MEDS: Enoxaparin Sodium 40 MG/0.4 ML SYRINGE SUBCUT (07:35)
--- NOTE | 2022-06-21 07:52 | PM.PNGS ---
Subjective Subjective Date of Service: 06/21/22 Patient reports: no new complaints Interval history: The patient is seated out of bed in a chair in a position the puts pressure on his buttocks. He reports that he feels about the same. Physical Exam Vital Signs: Vital Signs: Last Vital Signs Temp 96.8 F 06/21/22 06:49 Pulse 64 06/21/22 06:49 Resp 17 06/21/22 06:49 BP 132/90 H 06/21/22 06:49 Pulse Ox 98 06/21/22 06:49 O2 Del Method 06/21/22 06:49 O2 Flow Rate 2 06/18/22 06:49 Oxygen Flow Rate 2 06/15/22 20:25 BMI result Body Mass Index 33.5 The gluteal superficial excoriation and erythema persists. No palpable fluctuance is demonstrated. Objective Data Active Medications Acetaminophen (Acetaminophen 325 Mg Tablet) 650 mg PO Q6H PRN PRN Reason: Pain, Mild (Pain Scale 1-3) Last Admin: 06/20/22 19:38 Dose: 650 mg Documented By: BARRY Docusate Sodium (Docusate Sodium 100 Mg Capsule) 100 mg PO DAILY PRN PRN Reason: Constipation Enoxaparin Sodium (Enoxaparin Sodium 40 Mg/0.4 Ml Syringe) 40 mg SUBCUT Q24H [facility] Last Admin: 06/21/22 07:35 Dose: 40 mg Documented By: BRITTANY Sodium Chloride (Ns) 1,000 mls @ 125 mls/hr IVCONT .Q8H [facility] Last Infusion: 06/21/22 07:36 Dose: 0 mls/hr Documented By: BRITTANY Vancomycin HCl 1,500 mg/ (Sodium Chloride) 500 mls @ 333.333 mls/hr IV Q12H [facility] Last Admin: 06/21/22 07:34 Dose: 333.33 mls/hr Documented By: BRITTANY Piperacillin Sod/Tazobactam (Sod 3.375 gm/ Sodium Chloride) 50 mls @ 100 mls/hr IV Q6H [facility] Last Infusion: 06/21/22 05:45 Dose: 0 mls/hr Documented By: BARRY Ondansetron HCl (Ondansetron Hcl 4 Mg/2 Ml Vial) 4 mg IVPUSH Q8H PRN PRN Reason: Nausea and Vomiting Oxycodone HCl (Oxycodone Hcl Immed Release 5 Mg Tablet) 10 mg PO Q4H PRN PRN Reason: Pain, Moderate (Pain Scale 4-6 Last Admin: 06/20/22 19:39 Dose: 10 mg Documented By: BARRY Pharmacy Consult (Consult Rx Vancomycin Dosing) 1 each MISCELLANE DAILY PRN PRN Reason: Consult order Sodium Chloride (0.9 % Sodium Chloride Flush 3 Ml Syringe) 3 ml IVFLUSH [facility] Last Admin: 06/21/22 07:35 Dose: Not Given Documented By: BRITTANY Non-Admin Reason: IV Running Sodium Chloride (0.9 % Sodium Chloride Flush 3 Ml Syringe) [facility] Last Admin: 06/21/22 07:35 Dose: Not Given Documented By: BRITTANY Non-Admin Reason: IV Running Labs CBC & Chem 7: 06/21/22 05:07 06/21/22 05:07 Labs: Laboratory Results - last 24 hr 06/20/22 06/20/22 06/21/22 06:41 06:41 05:07 MCV 90.9 MCH 30.5 MCHC 33.5 RDW 13.3 Plt Count 176 MPV 10.0 Immature Gran % (Auto) 1.6 H Neut % (Auto) 60.8 Lymph % (Auto) 26.1 [place] % (Auto) 7.9 Eos % (Auto) 3.2 Baso % (Auto) 0.4 Lymph # (Auto) 1.9 [place] # (Auto) 0.6 Eos # (Auto) 0.2 Baso # (Auto) 0.0 Abs Immat Gran (auto) 0.11 H Absolute Neuts (auto) 4.3 Absolute Nucleated RBC 0.000 Nucleated RBC % (auto) 0.0 Anion Gap Estim Creat Clear Calc Estimated GFR Fasting Glucose Calcium Total Bilirubin AST ALT Alkaline Phosphatase Total Creatine Kinase Total Protein Albumin Vancomycin Trough Hep Bs Antigen Negative Hep Bs Antibody NONREACTIVE Hep B Core Total Ab Nonreactive Hepatitis C Ab (EIA) Reactive H HIV 1&2 Ab/P24 Ag 4thGn Nonreactive 06/21/22 06/21/22 05:07 05:07 MCV MCH MCHC RDW Plt Count MPV Immature Gran % (Auto) Neut % (Auto) Lymph % (Auto) [place] % (Auto) Eos % (Auto) Baso % (Auto) Lymph # (Auto) [place] # (Auto) Eos # (Auto) Baso # (Auto) Abs Immat Gran (auto) Absolute Neuts (auto) Absolute Nucleated RBC Nucleated RBC % (auto) Anion Gap 13 Estim Creat Clear Calc 144.5 Estimated GFR > 60 Fasting Glucose 94 Calcium 8.2 L Total Bilirubin 1.0 AST 125 H ALT 83 H Alkaline Phosphatase 39 Total Creatine Kinase 2990 H D Total Protein 6.0 L Albumin 3.2 L Vancomycin Trough 15.7 Hep Bs Antigen Hep Bs Antibody Hep B Core Total Ab Hepatitis C Ab (EIA) HIV 1&2 Ab/P24 Ag 4thGn Procedures Date of Service Date of Service: 06/21/22 Progress Note: A&P Assessment and plan (1) Cellulitis, gluteal, right: Status: Acute (2) Rhabdomyolysis: Status: Acute (3) Encephalopathy: Status: Acute (4) Intravenous drug user: Status: Acute Plan Position change and Education to the patient to minimize ongoing buttock pressure related issues. Continue to monitor for developing abscess. Call me with questions. I will see again in a few days. Time Spent With Patient Time: Total time spent is greater than 50% in coordination of care (as documented) at patient's floor/unit and/or counseling patient: Quality Stroke Does the patient have a stroke diagnosis?: No VTE Prior VTE?: No VTE Risk Level:: Medical - moderate - high VTE Device Contraindication: Treatment Not Indicated VTE Drug Contraindication: N/A - Med Ordered
--- NOTE | 2022-06-21 08:10 | HE.PHANOTE ---
Vancomycin Addendum Vancomycin level drawn 2 hours early today. Level was 15.7. Even though drawn early, patient should still be in therapeutic range. Will continue with current dose 1500 mg Q12H. Expected AUC 481 with a trough of 17.2. Next Level scheduled to be drawn 06/22 @ 1900. Yumiko Erwin, JrD
--- NOTE | 2022-06-21 09:48 | PM.DS ---
DS: Providers Provider Date of Service: 06/21/22 Date of admission: 06/15/22 23:39 Date of discharge: 06/21/22 Primary care physician: Unknown Physician Consults: 06/18/22 11:31 Consult to General Surgery Routine Consulting Provider: Andrés Lyman Reason for consultation: abcess Has provider been notified: No 06/19/22 07:42 Addiction Medicine Routine Consulting Provider: Bonny Becker Reason for consultation: opioid 06/20/22 07:58 Consult to Care Team Routine Comment: Reason for consultation: cocaine+opioid DS: Diagnosis Discharge Diagnosis (1) Cellulitis, gluteal, right: Status: Acute (2) Rhabdomyolysis: Status: Acute (3) Encephalopathy: Status: Acute (4) Intravenous drug user: Status: Acute (5) Hepatitis C antibody positive in blood: Status: Acute (6) Cocaine abuse: Status: Acute (7) Opioid abuse: Status: Acute DS: Summary Hospital Course Hospital Course: From the history and physical by the admitting hospitalist, Dean Sinclair, 06/15/22: 46-year-old male with past medical history of IV drug use who presents to the hospital with complaints of falling.? Patient arrives via EMS with altered mental status and a fall.? Patient is unable to give much history as he is lethargic but arousable.? He answers questions appropriately but just yes or no.? Per EMS patient was witnessed to have seizure-like activity.? Patient himself reports that he slipped and fell in the bathroom but, he reports no loss of consciousness. unclear who called EMS.? He has history of IV drug use with ICU admission in January for overdose.? Unable to obtain much more history. Patient himself denies any headache, change in vision, no chest pain, shortness of breath, no abdominal pain nausea or vomiting, no diarrhea constipation, no urinary symptoms and no lower extremity edema.? ?on arrival to the ED patient hemodynamically stable with no significant abnormal vitals Labs are significant for WBC count of 14,? AST of 389, ALT of 166, CPK of 26,779, COVID-19 negative When asked the patient how long he was down for he says about 30 minutes. Patient started on IV fluids and will be admitted for further management Head CT shows no acute intracranial pathology, no CT evidence of acute cervical spine fracture or traumatic subluxation Unable to obtain full medical history This 46yo M with hx IDU presenting after fall was admitted for rhabdomyolysis. He underwent aggressive IV fluid hydration with decrease in CPK by an order of magnitude, and did not have renal injury. He had a cellulitis of his sacral area and a CT ruled out an abscess; he was treated with broad-spectrum antibiotics [vancomycin + pipercillin/tazobactam] and discharged on doxycycline and amoxicilin-clavulanate. Encephalopathy resolved with time and he declined MAT for his opioid use disorder. He was discharged home with instructions to establish primary care as soon as possible and to avoid substances of abuse. Time Spent with Patient Time attestation: Total time spent providing and/or coordinating discharge services: Discharge coordination time: Greater than 30 minutes Quality: Safe Use of Opioids Does Pt have an Active Cancer Diagnosis on the Problem List?: No Quality: Stroke Does the patient have a stroke diagnosis?: No Physical Exam Vital Signs: Vital Signs: Last Vital Signs Temp 96.8 F 06/21/22 06:49 Pulse 64 06/21/22 06:49 Resp 17 06/21/22 06:49 BP 132/90 H 06/21/22 06:49 Pulse Ox 98 06/21/22 06:49 O2 Del Method 06/21/22 06:49 O2 Flow Rate 2 06/18/22 06:49 Oxygen Flow Rate 2 06/15/22 20:25 BMI result Body Mass Index 33.5 Gen: in no acute distress HEENT: sclera anicteric, moist mucus membranes Neck: supple Lungs: clear to auscultation bilaterally Heart: regular rate and rhythm, no murmurs Abd: soft, non-tender, non-distended Ext: no edema Skin: warm/well-perfused Neuro: alert and oriented x3, no focal findings Psych: appropriate affect DS: Data Data Completed and Pending Completed studies during hospitalization [Text1]: Laboratory Results WBC 7.1 X10*3/uL (4.8-10.8) 06/21/22 05:07 RBC 4.40 X10*6/uL (4.60-5.80) L 06/21/22 05:07 Hgb 13.4 g/dl (14.0-18.0) L 06/21/22 05:07 Hct 40.0 % (42.0-52.0) L 06/21/22 05:07 MCV 90.9 fL (80.0-98.0) 06/21/22 05:07 MCH 30.5 pg (27.0-33.0) 06/21/22 05:07 MCHC 33.5 g/dl (31.0-36.0) 06/21/22 05:07 RDW 13.3 % (11.0-16.0) 06/21/22 05:07 Plt Count 176 X10*3/uL (160-400) 06/21/22 05:07 MPV 10.0 fL (9.4-12.4) 06/21/22 05:07 Immature Gran % (Auto) 1.6 % (0.0-0.4) H 06/21/22 05:07 Neut % (Auto) 60.8 % (45-73) 06/21/22 05:07 Lymph % (Auto) 26.1 % (20-40) 06/21/22 05:07 [place] % (Auto) 7.9 % (2-11) 06/21/22 05:07 Eos % (Auto) 3.2 % (0-4) 06/21/22 05:07 Baso % (Auto) 0.4 % (0-2) 06/21/22 05:07 Lymph # (Auto) 1.9 X10*3/uL (1.2-4.9) 06/21/22 05:07 [place] # (Auto) 0.6 X10*3/uL (0.1-1.2) 06/21/22 05:07 Eos # (Auto) 0.2 X10*3/uL (0.0-0.4) 06/21/22 05:07 Baso # (Auto) 0.0 X10*3/uL (0.0-0.2) 06/21/22 05:07 Abs Immat Gran (auto) 0.11 X10*3/uL (0.00-0.03) H 06/21/22 05:07 Absolute Neuts (auto) 4.3 x10*3/uL (2.0-8.3) 06/21/22 05:07 Absolute Nucleated RBC 0.000 X10*3/uL (0.0-0.012) 06/21/22 05:07 Nucleated RBC % (auto) 0.0 /100WBC (0.0-0.2) 06/21/22 05:07 PT 13.5 SEC (10.0-13.1) H 06/15/22 21:01 INR 1.2 (0.9-1.1) H 06/15/22 21:01 APTT 27.1 SEC (26.0-36.4) 06/15/22 21:01 VBG pH 7.34 (7.32-7.43) 06/15/22 21:12 VBG pCO2 48 mmHg 06/15/22 21:12 VBG pO2 89 mmHg 06/15/22 21:12 VBG HCO3 26 mmol/L (22-26) 06/15/22 21:12 VBG O2 Saturation 97.0 % 06/15/22 21:12 VBG Base Excess 0.2 mmol/L 06/15/22 21:12 Sodium 142 mmol/L (135-145) 06/21/22 05:07 Potassium 4.2 mmol/L (3.3-5.1) 06/21/22 05:07 Chloride 107 mmol/L (96-108) 06/21/22 05:07 Carbon Dioxide 26 mmol/L (22-29) 06/21/22 05:07 Anion Gap 13 (12-20) 06/21/22 05:07 BUN 10 mg/dL (9-16) 06/21/22 05:07 Creatinine 0.81 mg/dL (0.5-1.4) 06/21/22 05:07 Estim Creat Clear Calc 144.5 06/21/22 05:07 Estimated GFR > 60 06/21/22 05:07 POC Glucose 138 mg/dL (60-115) H 06/15/22 21:18 Random Glucose TNP 06/20/22 06:41 Fasting Glucose 94 mg/dL (60-99) 06/21/22 05:07 Lactic Acid 1.6 mmol/L (0.5-2.0) 06/15/22 21:01 Calcium 8.2 mg/dL (8.4-10.2) L 06/21/22 05:07 Magnesium 2.1 mg/dL (1.6-2.6) 06/15/22 21:01 Total Bilirubin 1.0 mg/dL (0.0-1.0) 06/21/22 05:07 Direct Bilirubin 0.4 mg/dL (0.0-0.5) 06/15/22 21:01 AST 125 U/L (5-37) H 06/21/22 05:07 ALT 83 U/L (0-40) H 06/21/22 05:07 Alkaline Phosphatase 39 U/L (39-117) 06/21/22 05:07 Total Creatine Kinase 2990 U/L (38-174) H D 06/21/22 05:07 Total Protein 6.0 g/dL (6.5-8.0) L 06/21/22 05:07 Albumin 3.2 g/dL (3.5-5.0) L 06/21/22 05:07 Urine Color Yellow 06/16/22 13:35 Urine Appearance Clear 06/16/22 13:35 Urine pH 6.0 (5.0-9.0) 06/16/22 13:35 Ur Specific [place] 1.025 (1.005-1.025) 06/16/22 13:35 Urine Protein 100 (2+) mg/dL (Neg-Trace) H 06/16/22 13:35 Urine Glucose (UA) Negative mg/dL (Negative) 06/16/22 13:35 Urine Ketones Trace mg/dL (Negative) 06/16/22 13:35 Urine Blood Large (3+) (Negative) H 06/16/22 13:35 Urine Nitrite Negative (Negative) 06/16/22 13:35 Ur Leukocyte Esterase Negative (Negative) 06/16/22 13:35 Urine RBC 0-2 /HPF (0-2) 06/16/22 13:35 Urine WBC 0-5 /HPF (0-5) 06/16/22 13:35 Ur Squamous Epith Cells 0-2 /HPF (0-2) 06/16/22 13:35 Urine Bacteria None Seen (None Seen) 06/16/22 13:35 Hyaline Casts 0-2 /LPF (0-2) 06/16/22 13:35 Vancomycin Trough 15.7 mcg/mL (10.0-20.0) 06/21/22 05:07 Urine Opiates Screen Not Detected (Not Detect) 06/16/22 13:35 Urine Fentanyl Screen POSITIVE (Not Detect) H 06/16/22 13:35 Ur Barbiturates Screen Not Detected (Not Detect) 06/16/22 13:35 Ur Phencyclidine Scrn POSITIVE (Not Detect) H 06/16/22 13:35 Ur Amphetamines Screen Not Detected (Not Detect) 06/16/22 13:35 U Benzodiazepines Scrn Not Detected (Not Detect) 06/16/22 13:35 Urine Cocaine Screen POSITIVE (Not Detect) H 06/16/22 13:35 U Marijuana (THC) Screen POSITIVE (Not Detect) H 06/16/22 13:35 Ethyl Alcohol < 10 mg/dL 06/15/22 21:01 COVID-19 (MARYAN) Negative (Negative) 06/15/22 21:01 COVID-19 Clin Com See Note 06/15/22 21:01 Hep Bs Antigen Negative (Negative) 06/20/22 06:41 Hep Bs Antibody NONREACTIVE (Nonreactive) 06/20/22 06:41 Hep B Core Total Ab Nonreactive (Nonreactive) 06/20/22 06:41 Hepatitis C Ab (EIA) Reactive (Nonreactive) H 06/20/22 06:41 HIV 1&2 Ab/P24 Ag 4thGn Nonreactive (Nonreactive) 06/20/22 06:[address] 06/15/22 20:52 IMPRESSION: 1. No acute intracranial pathology. 2. No CT evidence of acute cervical spine fracture or traumatic subluxation Head CT 06/15/22 20:52 IMPRESSION: 1. No acute intracranial pathology. 2. No CT evidence of acute cervical spine fracture or traumatic subluxation Chest X-Ray 06/15/22 22:30 IMPRESSION: Unremarkable examination. Pelvis CT 06/19/22 10:29 IMPRESSION: 1. No perirectal/perianal fluid collection to suggest abscess. No appreciable rectal wall thickening. 2. Trace free pelvic fluid and presacral edema. Discharge Plan Discharge Patient Disposition: Home, Self-Care Discharge Diagnosis: rhabdomyolysis cellulitis cocaine + fentanyl abuse hepatitis C antibody positive Referrals: [facility] [Provider Group] - 1 Week Physician,Trevor Gregorio [Primary Care Provider] - 1 Week Discharge Medications: New doxycycline monohydrate 100 mg tablet 100 mg PO BID Qty: 10 0RF amoxicillin-pot clavulanate 875-125 mg tablet 1 tab PO BID Qty: 10 0RF nicotine (polacrilex) 2 mg gum 2 mg buccal Q2H Qty: 110 3RF Discharge Orders: Discharge Order (Routine); Ordered 06/21/22 Ordered By: Devendra Milton Diet: Advance to usual diet Activity on Discharge: As tolerated Stand Alone Forms: Patient Portal Discharge page Care Plan Goals: avoid substance abuse Health Concerns: rhabdomyolysis cellulitis cocaine + fentanyl abuse hepatitis C antibody positive Plan of Treatment: rhabdomyolysis: resolved cellulitis: take antibiotics (doxycycline + amoxicillin-clavulanate) twice daily for 5 days cocaine + fentanyl abuse: declined MAT. avoid substances of abuse. hepatitis C antibody positive: follow up with primary care doctor for viral load results establish primary care doctor as soon as possible please return to the hospital if you experience recurrent or worsening symptoms Assessment: See Discharge Summary
--- NOTE | 2022-06-21 09:56 | MHC.CM.PN ---
PATIENT HAS BEEN MEDICALLY CLEARED FOR DISCHARGE TODAY; DISCHARGE DISPOSITION IS HOME SELF-CARE. PATIENT WILL ARRANGE TRANSPORTATION.
[2022-06-21 11:24] VITALS: BP 122/58; PULSE 70; RESP 16; TEMP 36.1; O2SAT 97
--- NOTE | 2022-06-21 14:21 | PC.NURSE ---
Patient with a discharge order, notified by this RN he will be going home and to arrange for a ride. Did not wait for paper work, took his midline out, threw it in the trash in his room and took off not telling anyone. 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 Nursing pest control supervisor and Md notified.
[2022-06-24 14:37] LABS: HCV Log PCR 7.33 Log IU/mL (NOT DETECTED)
== END 2022-06-21 13:20 | disposition home or self-care (01) | DRG 351 ==
LOC: HO.ED 22:54 → HO.EDOVER 23:46 → HO.S3 06-16 17:12
PROVIDERS: Hospitalist; Physician Assistant; Admitting Provider Internal Medicine; Emergency Provider Emergency Medicine; Visit Provider Family Medicine
DX: M62.82 Rhabdomyolysis (principal); G92.8 Other toxic encephalopathy; L89.319 Pressure ulcer of right buttock, unspecified stage; F14.10 Cocaine abuse, uncomplicated; F11.10 Opioid abuse, uncomplicated; F17.210 Nicotine dependence, cigarettes, uncomplicated; Z71.6 Tobacco abuse counseling; L03.317 Cellulitis of buttock; F19.90 Other psychoactive substance use, unspecified, uncomplicated; Z20.822 Contact with and (suspected) exposure to COVID-19; Z88.6 Allergy status to analgesic agent
CPT/HCPCS: 36410; 36415; 70450; 71046; 72125; 72193; 80048; 80053; 80076; 80202; 80307; 81001; 82077; 82550; 82803; 82947; 83605; 83735; 85025; 85610; 85730; 86704; 86706; 86803; 87340; 87389; 87522; 87635; 93005; 96360; 99285; C1751; J1650; J2543; J3370; Q9967